=== PATIENT | female | born 1970 | race Caucasian/White ===

== ENCOUNTER → 2018-02-13 15:58 | Outpatient (REF) | payer OTHER, SELFPAY ==
[2018-02-13 19:29] LABS: Amphetamine/Metha Screen,Urine Negative ng/mL (<1000); Barbiturates Screen,Urine Negative ng/mL (<200); Benzodiazepines Screen,Urine Negative ng/mL (200); Cannabinoid Screen,Urine Negative ng/mL (<50); Cocaine Screen,Urine Negative ng/g (<300); Methadone Screen,Urine Negative ng/mL (<300); Opiate Screen,Urine Positive ng/mL (<300); Phencyclidine Screen,Urine Negative ng/mL (<25)
== END ==
LOC: LAB 15:58
PROVIDERS: Visit Provider Physician Assistant
DX: Z79.899 Other long term (current) drug therapy (principal)
CPT/HCPCS: 80305

== ENCOUNTER → 2018-05-03 09:42 | Outpatient (REF) | payer OTHER, SELFPAY ==
[2018-05-03 14:14] LABS: Amphetamine/Metha Screen,Urine Negative ng/mL (<1000); Barbiturates Screen,Urine Negative ng/mL (<200); Benzodiazepines Screen,Urine Negative ng/mL (<200); Cannabinoid Screen,Urine Negative ng/mL (<50); Cocaine Screen,Urine Negative ng/mL (<300); Methadone Screen,Urine Negative ng/mL (<300); Opiate Screen,Urine Positive ng/mL (<300); Phencyclidine Screen,Urine Negative ng/mL (<25)
== END ==
LOC: LAB 09:42
PROVIDERS: Visit Provider Nurse Practitioner Family
DX: Z79.899 Other long term (current) drug therapy (principal)
CPT/HCPCS: 80305

== ENCOUNTER → 2018-06-04 15:39 | Outpatient (REF) | payer OTHER, SELFPAY ==
[2018-06-04 19:33] LABS: Amphetamine/Metha Screen,Urine Negative ng/mL (<1000); Barbiturates Screen,Urine Negative ng/mL (<200); Benzodiazepines Screen,Urine Negative ng/mL (<200); Cannabinoid Screen,Urine Negative ng/mL (<50); Cocaine Screen,Urine Negative ng/mL (<300); Methadone Screen,Urine Negative ng/mL (<300); Opiate Screen,Urine Positive ng/mL (<300); Phencyclidine Screen,Urine Negative ng/mL (<25)
== END ==
LOC: LAB 15:39
PROVIDERS: Visit Provider Nurse Practitioner Family
DX: Z79.899 Other long term (current) drug therapy (principal)
CPT/HCPCS: 80305

== ENCOUNTER → 2018-08-01 19:19 | Outpatient (REF) | payer OTHER, SELFPAY ==
[2018-08-01 21:05] LABS: Amphetamine/Metha Screen,Urine Negative ng/mL (<1000); Barbiturates Screen,Urine Negative ng/mL (<200); Benzodiazepines Screen,Urine Negative ng/mL (<200); Cannabinoid Screen,Urine Negative ng/mL (<50); Cocaine Screen,Urine Negative ng/mL (<300); Methadone Screen,Urine Negative ng/mL (<300); Opiate Screen,Urine Positive ng/mL (<300); Phencyclidine Screen,Urine Negative ng/mL (<25)
== END ==
LOC: LAB 19:19
PROVIDERS: PCP Nurse Practitioner Family; Visit Provider Nurse Practitioner Family
DX: Z79.899 Other long term (current) drug therapy (principal)
CPT/HCPCS: 80305

== ENCOUNTER → 2019-08-29 13:28 | Outpatient (CLI) | payer BC, SELFPAY ==
[2019-08-29 14:24] LABS: Amphetamine/Metha Screen,Urine Negative ng/mL (<1000); Barbiturates Screen,Urine Negative ng/mL (<200); Benzodiazepines Screen,Urine Negative ng/mL (<200); Cannabinoid Screen,Urine Negative ng/mL (<50); Cocaine Screen,Urine Negative ng/mL (<300); Methadone Screen,Urine Negative ng/mL (<300); Opiate Screen,Urine Positive ng/mL (<300); Phencyclidine Screen,Urine Negative ng/mL (<25)
== END ==
PROVIDERS: Visit Provider Nurse Practitioner Family
DX: Z79.899 Other long term (current) drug therapy (principal)
CPT/HCPCS: 80305

== ENCOUNTER → 2019-09-23 09:44 | Outpatient (CLI) | payer BC, SELFPAY ==
--- NOTE | 2019-09-23 09:50 | XR_ITS ---
PROCEDURE: XR THORACIC SPINE 3V CLINICAL INDICATION: pain Back pain, lifting injury with pain COMPARISON: WO CT CHEST W/O CONTRAST from 01/04/2015 FINDINGS: Normal alignment. Mild degenerative changes with slight decrease in the disc spaces in the midthoracic spine with minimal osteophyte formation. Is slight decrease in height anteriorly of T6 age indeterminate. No other significant anomalies are evident. IMPRESSION: Mild degenerative changes with slight decrease in height of T6 anteriorly age indeterminate otherwise negative Dictated by: Robert Ibrahim MD 09/23/2019 14:21 Electronically signed by Robert Ibrahim MD in [place] 09/23/2019 14:21
--- NOTE | 2019-09-23 09:50 | XR_ITS ---
PROCEDURE: XR LUMBAR SPINE 2-3V CLINICAL INDICATION: pain Back pain COMPARISON: No exams were available for comparison FINDINGS: Facet arthritic changes are present at L5-S1. No fracture or dislocation. No lytic or blastic change. IMPRESSION: Mild facet arthritic changes L5-S1 Dictated by: Robert Ibrahim MD 09/23/2019 14:24 Electronically signed by Robert Ibrahim MD in [place] 09/23/2019 14:24
== END ==
PROVIDERS: PCP Physician Assistant; Visit Provider Nurse Practitioner Family
DX: M51.16 Intervertebral disc disorders with radiculopathy, lumbar region (principal)
CPT/HCPCS: 72072; 72100

== ENCOUNTER → 2020-05-17 18:05 | Outpatient (CLI) | payer BC, SELFPAY ==
[2020-05-17 19:35] LABS: Basophils % 0.2 % (0.1-2.0); Eosinophils # 0.1 K/mm3 (0.0-0.4); Hematocrit 34.9 % (37.0-47.0); Hemoglobin 11.4 g/dL (12.2-16.2); Lymphocytes # 2.4 K/mm3 (0.7-4.5); Lymphocytes % 52.5 % (10-50); Mean Corpuscular HGB Conc 32.5 g/dL (31.8-35.4); Mean Corpuscular Volume 83.1 fl (81-99); Mean Platelet Volume 10.2 fl (7.4-10.4); Monocytes # 0.2 K/mm3 (0.1-1.0); Monocytes % 3.7 % (1.7-9.3); Neutrophils % 42.6 % (37.0-80.0); Platelet Count 187 K/mm3 (142-424); Red Cell Distribution Width 15.7 % (11.5-17.5); White Blood Count 4.6 K/mm3 (4.8-10.8)
[2020-05-17 20:10] LABS: MANUAL DIFFERENTIAL MANUAL DIFFERENTIAL (MANUAL DIFF)
[2020-05-17 20:23] LABS: Alanine Aminotransferase 20 U/L (12-78); Albumin Level 4.5 g/dl (3.5-5.0); Albumin/Globulin Ratio 1.3 (1.1-1.8); Alkaline Phosphatase 177 U/L (38-126); Anion Gap 17.2 mEq/L (5-15); Aspartate Amino Transferase 34 U/L (14-36); Bilirubin,Total 0.4 mg/dl (0.2-1.3); Blood Urea Nitrogen 9 mg/dl (7-17); Calcium 10.5 mg/dl (8.4-10.2); Carbon Dioxide 25 mmol/L (22.0-30.0); Chloride 101 mmol/L (98-107); Cholesterol 288 mg/dl (140-200); Estimated Glomerular Filt Rate 131 ml/min (>60); GFR (African American) 158 ML/MIN (>60); Globulin 3.5 g/dL (1.3-3.2); Glucose 103 mg/dl (74-100); Potassium 4.2 mmoL/L (3.5-5.1); Sodium 139 mmol/L (136-145); Triglycerides 123 mg/dl (30-150); VLDL Cholesterol 25 mg/dL (0-40)
[2020-05-17 20:33] LABS: Chol/HDL Ratio 2.3 (1-3.5); HDL Cholesterol 126 mg/dl (40-60)
[2020-05-17 20:34] LABS: Direct LDL Cholesterol 126.45 mg/dL (100-129)
[2020-05-17 20:39] LABS: 25-OH Vitamin D, Total 26.8 ng/mL (30-100)
[2020-05-17 20:40] LABS: T4 (Thyroxine) 8.1 ug/dl (5.53-11.0)
[2020-05-17 20:53] LABS: Thyroid Stimulating Hormone 1.53 uIU/mL (0.465-4.68)
[2020-05-17 21:01] LABS: Eosinophils % 3 % (0-3); Lymphocytes % 56 % (10-50); Neutrophils % 41 % (42-76); Ovalocytes 1+; Platelet Estimate Normal; Total Cells Counted 100
[2020-05-17 21:02] LABS: Hypochromasia 1+
== END ==
LOC: LAB.DROPOF 18:05
PROVIDERS: Visit Provider Physician Assistant
DX: E53.8 Deficiency of other specified B group vitamins (principal); K86.1 Other chronic pancreatitis; M54.5 Low back pain; R53.83 Other fatigue; E55.9 Vitamin D deficiency, unspecified
CPT/HCPCS: 80053; 80061; 82306; 84436; 84443; 85007; 85025

== ENCOUNTER 2020-07-10 12:10 | Emergency (ER) | payer OTHER, SELFPAY ==
[2020-07-10 12:11] VITALS: BP 106/77; PULSE 87; RESP 19; TEMP 36.7; O2SAT 97; BMI 25.4
--- NOTE | 2020-07-10 12:13 | HMH.EDGENADL ---
ED Disposition Clinical Impression: Abrasion, left knee, initial encounter Contusion of left knee Qualifiers: Encounter type: initial encounter Qualified Code(s): S80.02XA - Contusion of left knee, initial encounter Fall Qualifiers: Encounter type: initial encounter Qualified Code(s): W19.XXXA - Unspecified fall, initial encounter Strain of left hip Qualifiers: Encounter type: initial encounter Qualified Code(s): S76.012A - Strain of muscle, fascia and tendon of left hip, initial encounter Disposition: Home, Self-Care Condition on Discharge: Good Instructions: How to Prevent Falls, DI for Knee Pain, How to Use a Knee Immobilizer, How to Use Crutches, DI for Hip Pain Additional Instructions: Crutches and knee immobilizer. Follow-up with orthopedics 4 to 5 days. Ice and your usual pain medication for pain. - Critical Care Critical Care Time: No Attestation: On , the high probability of a clinically significant, sudden or life threatening deterioration of the following system(s) required my full and direct attention, intervention and personal management. The time I documented below is in addition to time spent performing reported procedures but includes the following listed in this critical care notation. Medical Decision Making - Medical Records Medical records reviewed: Yes: I reviewed the patient's medical records. - Bassem Inquiry Pt receiving controlled substance: Yes Bassem was queried for this patient: Yes Reference #:: [id number] Risks and benefits of using a controlled substance: were not discussed with pt by me Comment: 10 rxs. last rx 90 lortab 7.5mg on 06/17/20 Vital Signs: 07/10/20 12:11 07/10/20 12:33 Temperature 98.0 F Temperature Source Oral Pulse Rate [Left Radial] 87 89 Respiratory Rate 19 Blood Pressure [Right Arm] 106/77 L 90/66 L Blood Pressure Mean [Right Arm] 86 74 Blood Pressure Source [Right Arm] Automatic Cuff Automatic Cuff Blood Pressure Position [Right Arm] Sitting Sitting 02 Sat by Pulse Oximetry 97 93 L Oxygen Delivery Method Room Air Room Air - Lab Data Lab results reviewed: Yes: I reviewed the patient's lab results. Orders (Tests/Meds): ED MEDICATIONS Discontinued Medications Generic Name Dose Route Start Last Admin Trade Name Freq PRN Reason Stop Dose Admin Hydrocodone Bitart/Acetaminophen 1 tab 07/10/20 12:58 Apap/Hydrocodone 325mg/7.5mg Tab PO 07/10/20 12:59 ONCE ONE ORDERS Category Date Time Status XR hip LT 2-3V w/pelvis Stat Exams 07/10/20 12:19 Taken XR knee LT 3V Stat Exams 07/10/20 12:19 Taken General Adult HPI - General Stated complaint: Fall Time Seen by Provider: 07/10/20 12:46 - History of Present Illness HPI narrative: Brought in by ambulance for a fall with left lower extremity injury. Patient states that she fell on [place] and landed on her left knee. She has an abrasion in the infrapatellar area. Her primary complaint is knee pain but she says she also thinks she jammed her hip. She says she did not try and walk after the accident. Denies other injuries. She is on chronic pain medication but says she has not taken any since last night. - Related Data Home Medications Medication Instructions Recorded Confirmed Atorvastatin Calcium [Lipitor 10mg 10 mg PO DAILY 07/10/20 07/10/20 Tab] Cholecalciferol (Vitamin D3) 25 mcg PO DAILY 07/10/20 07/10/20 [Vitamin D3 1,000 Unit Cap] Cyanocobalamin (Vitamin B-12) 1,000 mcg IM QMONTH 07/10/20 07/10/20 [Physicians Ez Use B-12] Ergocalciferol (Vitamin D2) 1,250 mcg PO QWEEK 07/10/20 07/10/20 [Drisdol] Omeprazole 20 mg PO DAILY 07/10/20 07/10/20 Previous Rx's Medication Instructions Recorded promethazine 25 mg tablet 25 mg PO Q6H PRN #30 tab 05/17/20 hydrocodone 7.5 mg-acetaminophen 1 tab PO TID PRN #90 tab 07/07/20 325 mg tablet Allergies Allergy/AdvReac Type Severity Reaction Status Date / Time No Known Steve
--- NOTE | 2020-07-10 12:19 | XR_ITS ---
PROCEDURE: XR KNEE LT 3V CLINICAL INDICATION: fall COMPARISON: No exams were available for comparison FINDINGS: No fracture or dislocation. No lytic or blastic change. There is normal mineralization. The joint spaces are well-preserved. No significant degenerative/arthritic changes. No erosive changes evident. Other findings:None. IMPRESSION: No acute findings. Dictated by: Dr. Nikolas Cabrera MD 07/10/2020 15:54 Dr. Nikolas Cabrera MD in [place] 07/10/2020 15:54
--- NOTE | 2020-07-10 12:19 | XR_ITS ---
PROCEDURE: XR HIP LT 2-3V W/PELVIS CLINICAL INDICATION: fall , Left hip pain COMPARISON: No exams were available for comparison FINDINGS: No fracture or dislocation is evident. No significant degenerative change. No lytic or blastic change. Unremarkable soft tissues. There is osteophytic spurring or possibly a small osteo chondroma adjacent to the lesser trochanter right hip. The SI joints and symphysis pubis appear normal. IMPRESSION: No acute findings. Dictated by: Dr. Nikolas Cabrera MD 07/10/2020 15:54 Dr. Nikolas Cabrera MD in [place] 07/10/2020 15:54
[2020-07-10 12:33] VITALS: BP 90/66; PULSE 89; O2SAT 93
--- NOTE | 2020-07-10 12:37 | PC.NURSE ---
Pt to rad.
--- NOTE | 2020-07-10 12:48 | PC.NURSE ---
Pt returned from rad and went to restroom. Pt is back in bed at this time.
[2020-07-10 14:06] VITALS: BP 154/85; PULSE 87; RESP 17; TEMP 36.8; O2SAT 100
== END 2020-07-10 14:06 | disposition home or self-care (01) ==
PROVIDERS: Emergency Provider Emergency Medicine; PCP Emergency Medicine
DX: S80.02XA Contusion of left knee, initial encounter (principal); S76.012A Strain of muscle, fascia and tendon of left hip, initial encounter; W01.0XXA Fall on same level from slipping, tripping and stumbling without subsequent striking against object, initial encounter; Y92.019 Unspecified place in single-family (private) house as the place of occurrence of the external cause
CPT/HCPCS: 29505; 73502; 73562; 99283

== ENCOUNTER → 2020-08-23 16:47 | Outpatient (CLI) | payer OTHER, SELFPAY ==
--- NOTE | 2020-08-23 16:47 | MM_ITS ---
PROCEDURE: MM DIG SCREENING MAMM BI W/CAD Digital Breast Tomosynthesis Included CLINICAL INDICATION: screening There is a history of breast cancer in the patient's maternal cousin and paternal aunt. COMPARISON: MG DIGMAMMS MAMMOGRAM SCREEN-LEAD FABRICATOR N/C from 05/10/2012 MG DIGMAMMS MAMMOGRAM SCREEN-LEAD FABRICATOR N/C from 06/19/2013 MG DMSB DIG MAMM-SCREEN JV from 05/22/2016 TECHNIQUE: Standard CC and MLO images and 3D Tomosynthesis was obtained. R2 CAD reviewed. FINDINGS: Scattered fibroglandular densities are seen throughout both breast and the findings are bilateral and symmetrical. There is no suspicious lesion and no suspicious microcalcifications. IMPRESSION: Fibrofatty parenchyma with no suspicious lesions seen BI-RAD Category: 1 Negative FOLLOW-UP: 1YR 1 Year Follow-up (A letter has been sent to the patient regarding results of the study.) Dictated by: Dr. Nikolas Cabrera MD 08/27/2020 11:05 Dr. Nikolas Cabrera MD in [place] 08/27/2020 11:05
== END ==
PROVIDERS: PCP Physician Assistant; Visit Provider Physician Assistant
DX: Z12.31 Encounter for screening mammogram for malignant neoplasm of breast (principal)
CPT/HCPCS: 77063; 77067

== ENCOUNTER → 2020-09-17 15:42 | Outpatient (CLI) | payer OTHER, SELFPAY ==
--- NOTE | 2020-09-17 15:49 | MR_ITS ---
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 3-D MIP and myelographic images are also rendered and reviewed FINDINGS: The spinal cord ends at the L1 level L1-L2: Unremarkable. L2-L3: Unremarkable. L3-L4: Minimal bulging disc with mild facet and ligamentum hypertrophy with mild bilateral lateral recess narrowing not significantly changed. L4-5: Mild concentric bulging disc with facet and ligamentum hypertrophy. The bulging disc is very slightly eccentric toward the left. There is bilateral lateral recess narrowing and foraminal narrowing with borderline canal stenosis. Not significantly changed. L5-S1: Mild concentric bulging disc with annular fissure on the right. The bulging disc is very slightly eccentric toward the right. There is facet and ligamentum hypertrophic change with mild left lateral recess and mild bilateral foraminal narrowing. IMPRESSION: 1. L3-L4: Minimal bulging disc with mild facet and ligamentum hypertrophy with mild bilateral lateral recess narrowing not significantly changed. 2. L4-5: Mild concentric bulging disc with facet and ligamentum hypertrophy. The bulging disc is very slightly eccentric toward the left. There is bilateral lateral recess narrowing and foraminal narrowing with borderline canal stenosis. Not significantly changed. 3. L5-S1: Mild concentric bulging disc with annular fissure on the right. The bulging disc is very slightly eccentric toward the right. There is facet and ligamentum hypertrophic change with mild left lateral recess and mild bilateral foraminal narrowing. Dictated by: Robert Ibrahim MD 09/20/2020 07:06 Robert Ibrahim MD in [place] 09/20/2020 07:06
== END ==
LOC: RAD 15:44
PROVIDERS: PCP Physician Assistant; Visit Provider Physician Assistant
DX: M54.5 Low back pain (principal); R20.0 Anesthesia of skin; R20.2 Paresthesia of skin; R29.6 Repeated falls
CPT/HCPCS: 72148; 76376

== ENCOUNTER → 2021-02-09 13:46 | Outpatient (CLI) | payer OTHER, SELFPAY ==
[2021-02-09 15:19] LABS: Barbiturates Screen,Urine Negative ng/ml (<200); Benzodiazepines Screen,Urine Positive ng/ml (<200)
[2021-02-09 15:20] LABS: Amphetamine/Metha Screen,Urine Negative ng/ml (<1000)
[2021-02-09 15:21] LABS: Cannabinoid Screen,Urine Negative ng/ml (<50); Cocaine Screen,Urine Negative ng/ml (<300)
[2021-02-09 15:22] LABS: Methadone Screen,Urine Negative ng/ml (<300); Opiate Screen,Urine Positive ng/ml (<300)
[2021-02-09 15:23] LABS: Phencyclidine Screen,Urine Negative ng/ml (<25)
== END ==
PROVIDERS: Visit Provider Physician Assistant
DX: Z79.899 Other long term (current) drug therapy (principal)
CPT/HCPCS: 80305

== ENCOUNTER → 2021-02-25 11:03 | Outpatient (CLI) | payer OTHER, SELFPAY | PROVIDERS: Visit Provider Internal Medicine Gastroenterology | DX: Z01.812 Encounter for preprocedural laboratory examination (principal); Z11.52 Encounter for screening for COVID-19; Z13.810 Encounter for screening for upper gastrointestinal disorder | CPT/HCPCS: U0003 ==

== ENCOUNTER 2021-02-28 08:34 | Day surgery (SDC) | payer OTHER, SELFPAY ==
[2021-02-22 10:02] VITALS: BMI 26.5
[2021-02-28] VITALS (7 sets, daily range): BP systolic 87–120; BP diastolic 56–79; PULSE 69–101; RESP 16–18; TEMP 36.2–36.7; O2SAT 97–100
--- NOTE | 2021-02-28 09:58 | HMH.ANESCL ---
[facility] Anesthesia Checklist - Patient Identification Patient Identification: Arm Band - Structural Data Admitted From: Home Planned Operative Procedure/s: EGD Consent for Planned Operative Procedure(s) Verified: Yes - NPO Status Verified Time NPO: 00:00 - Airway Assessment C-Spine Mobility Assessed: Yes TMJ Mobility Assessed: Yes Dentition: Good Dentition - Neurological Assessment Level of Consciousness: Awake Hx Seizures: No Numbness or tingling in extremities: No - Anesthesia Plan Anesthesia Risk discussed: Yes Anesthesia Plan: Verified ASA Class: II Anesthesia Type: MAC [facility] History Medical History: Reports:: Anxiety, Cancer (esophageal) Denies:: Diabetes Mellitus Type 1, Diabetes Mellitus Type 2, Internal Pacemaker, MRSA, Seizures *Have you ever received a pneumonia vaccine?: No *Have you received a flu vaccine this season?: No Other Medical History: Reports: Other Anesthesia experience/problems:: None Other Surgeries: Yes: Bariatric Surgery, Cholecystectomy, Colonoscopy, Hysterectomy-Total, Tubal Ligation. No: Pacemaker Amputation: No Fractures: No - *Social History Last grade of school completed: High school graduate Smoking Status: Never smoker Tobacco Type: cigarettes Alcohol Intake: never Substance Use Type: denies use *Occupational Status:: retired Housing: house Household Members: spouse *Travel in the last 8 weeks: None - Psychiatric History Pschychiatric History:: Reports:: Anxiety Family Hx:: Cancer, Diabetes, Other
--- NOTE | 2021-02-28 10:38 | HMH.PROC ---
[facility] Procedure Note Procedure Note:: Upper Endoscopy Procedure Report: Esophagogastroduodenoscopy with cold biopsies and TTS balloon dilation Endoscopost: Julio Reese II, MD Referring Physician: Vamsi Garces MD/Maribeth Dejesus PA-C Date of Procedure: February 28, 2021 Equipment: Olympus GIF 190 standard upper endoscope Sedation: MAC sedation Indications: Mrs. Gonzales is a 50-year-old female with a history of Ward's esophagus with high-grade dysplasia. She did undergo radiofrequency ablation in 2013. She was last seen by Dr. James Gibson at the [facility]. 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 The patient has had increased heartburn and regurgitation. She has had some epigastric abdominal discomfort, dyspepsia, nausea, bloating and early satiety. She does have some belching. She reports globus sensation. She has a history of chronic constipation. EGD is performed for Ward's surveillance and evaluation of her dyspepsia. Procedure: Prior to the procedure, a history and physical exam was performed, and patient's medications and allergies were reviewed. The risks, benefits and alternatives of the sedation and procedure were discussed with the patient. All questions were answered and informed consent was obtained. The patient was brought to the procedure room. Patient identification and proposed procedure were verified by the physician and the nurse. The patient was placed in a left lateral decubitus position and the scope was passed under direct vision. Throughout the procedure, the patient's blood pressure, pulse, and oxygen saturations were monitored continuously. The upper GI endoscopy was accomplished without difficulty. The patient tolerated the procedure well. Findings: The scope was passed directly into the upper esophagus and advanced to the afferent and efferent limbs of jejunum. The scope was withdrawn and the conniventes were normal. There was some stenosis of the anastomotic stoma into the efferent limb and this was dilated up to 12 mm with a TTS hydrostatic balloon. The gastric pouch was normal in size. There was reduced LES resting tone and there was mild gastropathy of the pouch. The scope was withdrawn into the esophagus. There were a couple of tongues of salmon-colored mucosa that were very short and the narrowband imaging (NBI) was utilized but there was no obvious Wrad's. Biopsies were taken at the GE junction. There was grade A reflux esophagitis (LA classification). The remainder of the esophageal mucosa was normal. Impression: 1. Serrated squamocolumnar junction (no obvious Ward's) with grade A reflux esophagitis status post biopsies 2. 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 I would recommend continued PPI therapy. I do feel that most of her dyspepsia and reflux is driven by high gas pressure gradients from colonic obstipation with colonic fermentation/gas formation. We will discuss additional dietary measures, fiber bowel regimen and treatment.
== END 2021-02-28 11:42 | disposition home or self-care (01) ==
LOC: OUTP 08:38
PROVIDERS: PCP Physician Assistant; Visit Provider Internal Medicine Gastroenterology
PROC: 0DJ08ZZ Inspection of Upper Intestinal Tract, Via Natural or Artificial Opening Endoscopic (ICD-10-PCS; CPT 43235; principal; 2021-02-28 10:00)
DX: K22.8 Other specified diseases of esophagus (principal); K21.00 Gastro-esophageal reflux disease with esophagitis, without bleeding; K31.89 Other diseases of stomach and duodenum; Z85.01 Personal history of malignant neoplasm of esophagus; Z87.19 Personal history of other diseases of the digestive system; Z98.84 Bariatric surgery status; F41.9 Anxiety disorder, unspecified; Z90.49 Acquired absence of other specified parts of digestive tract; Z80.9 Family history of malignant neoplasm, unspecified; Z83.3 Family history of diabetes mellitus; Z79.899 Other long term (current) drug therapy
CPT/HCPCS: 43239; 43245; C1726

== ENCOUNTER 2021-03-27 11:47 | Emergency (ER) | payer OTHER, SELFPAY ==
[2021-03-27 11:54] VITALS: BP 125/75; PULSE 97; RESP 14; TEMP 36.8; O2SAT 98; BMI 27.4
--- NOTE | 2021-03-27 12:19 | HMH.EDUTC ---
[facility] Disposition Clinical Impression: Otitis media Qualifiers: Otitis media type: suppurative Chronicity: acute Laterality: right Recurrence: non-recurrent Spontaneous tympanic membrane rupture: with spontaneous rupture Qualified Code(s): H66.011 - Acute suppurative otitis media with spontaneous rupture of ear drum, right ear Disposition: Home, Self-Care Condition on Discharge: Good Instructions: Middle Ear Infection Additional Instructions: Start antibiotic as soon as possible and be sure to take as ordered for full length of time even though he should start feeling better in 24-48 hours. Tylenol or Motrin as needed for pain or fever don't let any fluids get in ear wear ear plugs if necessary Encourage fluids, water, Gatorade, Powerade, Pedialyte if /toddler/child Warm compresses often helps when placed over ear Return immediately for new or worsening symptoms no noticeable improvement in 48-72 hours and in 10-14 days to ensure the ears are return to baseline. Follow-up with primary care Prescriptions: Amoxicillin [Amoxicillin 500mg Tab] 500 mg PO BID 10 Days #20 tab Prescription Printed Referrals: Maribeth Dejesus PA [Primary Care Provider] - Time of Disposition: 12:24 Medical Decision Making - Bassem Inquiry Pt receiving controlled substance: No Vital Signs: 03/27/21 11:54 Temperature 98.3 F Temperature Source Oral Pulse Rate [Left] 97 H Respiratory Rate 14 Blood Pressure [Right Arm] 125/75 Blood Pressure Mean [Right Arm] 91 Blood Pressure Source [Right Arm] Automatic Cuff Blood Pressure Position [Right Arm] Sitting 02 Sat by Pulse Oximetry 98 Oxygen Delivery Method Room Air [facility] HPI - General Chief complaint: Urgent Treatment Center Stated complaint: right ear pain and bleeding Time Seen by Provider: 03/27/21 12:19 Mode of Arrival: Ambulatory Source of Information: Patient Limitations: No Limitations Description of Symptoms (Recalled from Triage Doc. by RN): Pt c/o R ear pain with serosanguinous drainage. HEENT Symptoms (Recalled from RN notes): Yes (R ear ache with drainage) Resp Symptoms (Recalled from RN notes): No Skin Symptoms (Recalled from RN notes): No MS Symptoms (Recalled from RN notes): No Functional Status (Recalled from RN notes): na - History of Present Illness Provider Complaint: 50 yr old female presents for rt ear pain with bloody drainage. pt states pain started yesterday and this am she noticed blood - Related Data Home Medications Medication Instructions Recorded Confirmed Cholecalciferol (Vitamin D3) 25 mcg PO DAILY 07/10/20 02/28/21 [Vitamin D3 1,000 Unit Cap] Cyanocobalamin (Vitamin B-12) 1,000 mcg IM QMONTH 07/10/20 02/28/21 [Physicians Ez Use B-12] Hydrocodone/Acetaminophen 1 each PO NEEDED PRN 02/22/21 02/28/21 [Hydrocodon-Acetaminoph 7.5-325] Previous Rx's Medication Instructions Recorded atorvastatin 10 mg tablet 10 mg PO DAILY #90 tab 11/03/20 omeprazole 20 mg capsule,delayed 20 mg PO DAILY #90 cap 11/03/20 release Amoxicillin [Amoxicillin 500mg Tab] 500 mg PO BID 10 Days #20 tab 03/27/21 Allergies Allergy/AdvReac Type Severity Reaction Status Date / Time No Known Allergies Allergy Verified 03/27/21 12:13 - Worker's Comp Is this a Worker's Comp case?: No [facility] History - Hepatitis A Screen Drug use history?: No High risk sexual behaviors?: No History of sexually transmitted infection?: No Currently employed?: No Childcare worker?: No Do you have indoor plumbing?: Yes Do you have electricity?: Yes Attestation statement:: This patient has been screened for Hepatitis A risk factors. I have reviewed the patient's past medical history: Yes Medical History: Reports:: Anxiety, Cancer (esophageal) Denies:: Diabetes Mellitus Type 1, Diabetes Mellitus Type 2, Internal Pacemaker, MRSA, Seizures Other Medical History: Reports: Other Comment: CHRONIC PANCREATITIS, BACK PAIN Other Surgeries: Yes: Bariatric Surgery,
[2021-03-27 12:21] VITALS: BP 125/75; PULSE 97; RESP 16; TEMP 36.8
== END 2021-03-27 12:30 | disposition home or self-care (01) ==
PROVIDERS: Emergency Provider Nurse Practitioner Family; PCP Physician Assistant
DX: H66.011 Acute suppurative otitis media with spontaneous rupture of ear drum, right ear (principal); F41.9 Anxiety disorder, unspecified
CPT/HCPCS: 99202; G0463

== ENCOUNTER → 2021-04-22 12:20 | Outpatient (CLI) | payer OTHER, SELFPAY | PROVIDERS: Visit Provider Internal Medicine Gastroenterology | DX: Z20.822 Contact with and (suspected) exposure to COVID-19 (principal) | CPT/HCPCS: U0003 ==

== ENCOUNTER 2021-04-25 09:05 | Day surgery (SDC) | payer OTHER, SELFPAY ==
[2021-04-21 11:38] VITALS: BMI 26.1
[2021-04-25 09:21] VITALS: BP 127/79; PULSE 89; RESP 18; TEMP 36.8; O2SAT 99
--- NOTE | 2021-04-25 09:32 | P.PN_ITS ---
[facility] Anesthesia Checklist - Patient Identification Patient Identification: Arm Band - Structural Data Admitted From: Home Planned Operative Procedure/s: Colonoscopy Consent for Planned Operative Procedure(s) Verified: Yes - NPO Status Verified Time NPO: 00:00 - Airway Assessment C-Spine Mobility Assessed: Yes TMJ Mobility Assessed: Yes Dentition: Good Dentition - Neurological Assessment Level of Consciousness: Awake Hx Seizures: No Numbness or tingling in extremities: No - Anesthesia Plan Anesthesia Risk discussed: Yes Anesthesia Plan: Verified ASA Class: II Anesthesia Type: MAC [facility] History Medical History: Reports:: Anxiety, Cancer (ESOPHAGEAL) Denies:: Diabetes Mellitus Type 1, Diabetes Mellitus Type 2, Internal Pacemaker, MRSA, Seizures *Have you ever received a pneumonia vaccine?: No *Have you received a flu vaccine this season?: No Other Medical History: Reports: Other Anesthesia experience/problems:: None Other Surgeries: Yes: Bariatric Surgery, Cholecystectomy, Colonoscopy, Hysterectomy-Total, Tubal Ligation. No: Pacemaker Amputation: No Fractures: No - *Social History Last grade of school completed: High school graduate Smoking Status: Never smoker Tobacco Type: cigarettes Alcohol Intake: never Substance Use Type: denies use *Occupational Status:: other Housing: house Household Members: spouse *Travel in the last 8 weeks: None - Psychiatric History Pschychiatric History:: Reports:: Anxiety Family Hx:: Cancer, Diabetes, Hypertension
--- NOTE | 2021-04-25 10:15 | HMH.PROC ---
[facility] Procedure Note Procedure Note:: Colonoscopy Procedure Report: Colonoscopy Endoscopist: Julio Reese II, MD Referring physician: Maribeth Dejesus PA-C Date of Procedure: April 25, 2021 Equipment: Olympus 190 variable stiffness pediatric colonoscope Sedation: MAC sedation Indication: Mrs. Gonzales is a 51-year-old female who is here for screening colonoscopy. The patient does have a history of Ward's with ablation. She had an EGD with sd on February 28, 2021 and had mild reflux esophagitis and Valeria-en-Y gastric bypass anatomy with some anastomotic stenosis. I did dilate this anastomotic stricture/stenosis to 12 mm. She has been on the fiber bowel regimen (combined MiraLAX plus Metamucil mixed together by mouth every morning). She is doing better and has no significant abdominal complaints. She reports no abdominal pain, weight loss, change in her bowel habits or rectal bleeding. She reports no family history of colon cancer. Her last colonoscopy was 10 years ago and was normal. Procedure: Prior to the procedure, a history and physical exam was performed, and patient's medications and allergies were reviewed. The risks, benefits and alternatives of the sedation and procedure were discussed with the patient. All questions were answered and informed consent was obtained. The patient was brought to the procedure room. Patient identification and proposed procedure were verified by the physician and the nurse. The patient was placed in a left lateral decubitus position and the scope was passed under direct vision. Throughout the procedure, the patient's blood pressure, pulse, and oxygen saturations were monitored continuously. The colonoscopy was accomplished without difficulty. The patient tolerated the procedure well. Findings: On digital rectal examination there was normal rectal tone. There were no external hemorrhoids. The colonoscope was introduced through the anal canal to the rectum and advanced to the cecum. The ileocecal valve and appendiceal orifice were identified. The scope was advanced a short distance into the ileum which appeared grossly normal. The scope was then withdrawn into the colon. The cecum, ascending, transverse, descending, sigmoid and rectum were grossly normal. There were no mucosal abnormalities identified. Upon retroflexion within the rectum there were grade 1-2 internal hemorrhoids.The preparation was excellent throughout with [place] Preparation Score of nine. The cecal time was 12 minutes. Impression: 1. Normal colonoscopy with intubation of the terminal ileum 2. Grade 1-2 internal hemorrhoids Plan: The patient will not require screening/surveillance colonoscopy again for 10 years by [facility] guidelines. I would encourage continuation of the fiber bowel regimen (combined MiraLAX plus Metamucil) on a long-term daily maintenance basis.
[2021-04-25 10:17] VITALS: BP 101/60; PULSE 96; RESP 12; TEMP 36.4; O2SAT 98
[2021-04-25 10:27] VITALS: BP 126/81; PULSE 88; RESP 16; O2SAT 98
[2021-04-25 10:37] VITALS: BP 108/68; PULSE 83; RESP 16; O2SAT 98
[2021-04-25 10:47] VITALS: BP 112/67; PULSE 82; RESP 16; TEMP 36.4; O2SAT 100
[2021-04-25 13:30] VITALS: O2SAT 99
== END 2021-04-25 10:48 | disposition home or self-care (01) ==
LOC: OUTP 09:07
PROVIDERS: PCP Physician Assistant; Visit Provider Internal Medicine Gastroenterology
PROC: 0DJD8ZZ Inspection of Lower Intestinal Tract, Via Natural or Artificial Opening Endoscopic (ICD-10-PCS; CPT 45378; principal; 2021-04-25 10:00)
DX: Z12.11 Encounter for screening for malignant neoplasm of colon (principal); Z87.19 Personal history of other diseases of the digestive system; Z98.84 Bariatric surgery status; K64.0 First degree hemorrhoids; Z85.01 Personal history of malignant neoplasm of esophagus; F41.9 Anxiety disorder, unspecified; Z80.9 Family history of malignant neoplasm, unspecified; Z83.3 Family history of diabetes mellitus; Z82.49 Family history of ischemic heart disease and other diseases of the circulatory system; Z79.899 Other long term (current) drug therapy
CPT/HCPCS: 45378; J2704

== ENCOUNTER → 2021-10-19 08:47 | Outpatient (CLI) | payer OTHER, SELFPAY | PROVIDERS: Visit Provider Nurse Practitioner | DX: Z20.822 Contact with and (suspected) exposure to COVID-19 (principal) | CPT/HCPCS: C9803; U0003; U0005 ==

== ENCOUNTER 2021-12-15 10:04 | Emergency (ER) | payer OTHER, SELFPAY ==
[2021-12-15 11:15] VITALS: BP 112/79; PULSE 82; RESP 20; TEMP 37.4; O2SAT 99; BMI 27.1
[2021-12-15 11:22] LABS: UTC Strep Screen (Rapid) Negative (Negative)
--- NOTE | 2021-12-15 11:43 | HMH.EDUTC ---
[facility] [place] Clinical Impression: Sinusitis Qualifiers: Sinusitis location: unspecified location Chronicity: unspecified Qualified Code(s): J32.9 - Chronic sinusitis, unspecified Disposition: Home, Self-Care Condition on Discharge: Good Instructions: Sinusitis, DI for Sinusitis Additional Instructions: ? Start antibiotic today. Be sure to complete entire prescription even if feeling better ? Monitor temp. Tylenol every 4 hours as needed and / or ibuprofen every 6 hours as needed ( As long as your primary care physician has told you that it ok to take both. For fever/aches/pains ER if no less than 101 despite Tylenol or Motrin ? Humidifier/vaporizer or hot steamy shower ? Inhaler every 4-6 hours as needed like we discussed. If unsure how to use it, ask pharmacist to demonstrate how. Should help open airways and improve cough, wheezing, and shortness of breath ? Mucinex during the day for your cough and cough suppressant only at night. Be sure to drink lots of water. Insurance may not cover a prescriptions for mucinex. Might be cheaper to get 400mg tablets and take 2 tablet in the morning, mid-day and evening with lots of water. *Promethazine DM cough syrup will cause drowsiness. Use only at night. No driving, operating machinery or caring for small children after taking it *Tessalon Perles will not cause drowsiness but use at bedtime to help stop cough so that you may get some rest. *Start steroid today. Helps with inflammation therefore, cough and wheezing. Follow directions on the package. Reviewed side effects. Patient reports taking them before. Follow up IMMEDIATELY for new or worsening of symptoms OR no noticeable improvement over the next 48-72 hours. 911 immediately for any life threatening symptoms such as chest pain or difficulty breathing Prescriptions: Benzonatate [Benzonatate 100mg cap] 100 mg PO Q8HP PRN #15 cap PRN Reason: Cough Transmission Status: Pending to [facility] Amoxicillin/Potassium Clav [Amox-Clav 875-125 mg Tablet] 1 tab PO BID #14 tab Transmission Status: Pending to [facility] methylPREDNISolone [Medrol 4mg tab] 4 mg PO DIRECTED #21 tab Transmission Status: Pending to [facility] Referrals: Maribeth Dejesus PA [Primary Care Provider] - As needed Time of Disposition: 11:53 Medical Decision Making - Bassem Inquiry Pt receiving controlled substance: No Bassem was queried for this patient: No Vital Signs: 12/15/21 11:15 Temperature 99.4 F Temperature Source Oral Pulse Rate [Right Brachial] 82 Respiratory Rate 20 Blood Pressure [Right Arm] 112/79 Blood Pressure Mean [Right Arm] 90 Blood Pressure Source [Right Arm] Automatic Cuff Blood Pressure Position [Right Arm] Sitting 02 Sat by Pulse Oximetry 99 Oxygen Delivery Method Room Air - Lab Data Lab Results 12/15/21 11:02: Strep Scn Rapid Clinic Negative Orders (Tests/Meds): ORDERS Category Date Time Status Strep Screen Confirmation Stat Micro 12/15/21 11:02 [place] [facility] [place] - General Stated complaint: sore throat,headache Time Seen by Provider: 12/15/21 11:43 Mode of Arrival: Ambulatory Source of Information: Patient Limitations: No Limitations Description of Symptoms (Recalled from Triage Doc. by RN): PATIENT C/O COUGH, SORE THROAT, HEADACHE AND CHEST CONGESTION HEENT Symptoms (Recalled from RN notes): Yes Resp Symptoms (Recalled from RN notes): Yes Skin Symptoms (Recalled from RN notes): No MS Symptoms (Recalled from RN notes): No Functional Status (Recalled from RN notes): WNL - History of Present Illness Provider Complaint: Patient state that she has not felt well for about a week States that she has been having sinus pain and pressure, cough, headache and feels like it is trying to move into her chest area states that today she was still not feeling well so she came in - Related Data Home Medications Medication Instructions Recorded Confirmed Psyllium Hus
[2021-12-15 11:57] VITALS: BP 112/79; PULSE 82; RESP 20; TEMP 37.4; O2SAT 99
== END 2021-12-15 11:58 | disposition home or self-care (01) ==
PROVIDERS: Emergency Provider Nurse Practitioner; PCP Physician Assistant
DX: J32.9 Chronic sinusitis, unspecified (principal); J02.9 Acute pharyngitis, unspecified; M51.16 Intervertebral disc disorders with radiculopathy, lumbar region; R51.9 Headache, unspecified; M54.9 Dorsalgia, unspecified; E53.8 Deficiency of other specified B group vitamins; G89.29 Other chronic pain; K22.70 Barrett's esophagus without dysplasia; K86.1 Other chronic pancreatitis; F41.9 Anxiety disorder, unspecified; Z79.1 Long term (current) use of non-steroidal anti-inflammatories (NSAID); Z79.52 Long term (current) use of systemic steroids; Z79.899 Other long term (current) drug therapy; Z82.49 Family history of ischemic heart disease and other diseases of the circulatory system; Z80.9 Family history of malignant neoplasm, unspecified; Z83.3 Family history of diabetes mellitus
CPT/HCPCS: 87880; 99213; G0463

== ENCOUNTER → 2022-10-11 14:50 | Outpatient (CLI) | payer OTHER, SELFPAY ==
[2022-10-11 17:08] LABS: Amphetamine/Metha Screen,Urine Negative ng/ml (<1000)
[2022-10-11 17:09] LABS: Barbiturates Screen,Urine Negative ng/ml (<200)
[2022-10-11 17:10] LABS: Benzodiazepines Screen,Urine Positive ng/ml (<200); Cannabinoid Screen,Urine Negative ng/ml (<50)
[2022-10-11 17:11] LABS: Cocaine Screen,Urine Negative ng/ml (<300)
[2022-10-11 17:12] LABS: Methadone Screen,Urine Negative ng/ml (<300); Opiate Screen,Urine Positive ng/ml (<300)
[2022-10-11 17:13] LABS: Phencyclidine Screen,Urine Negative ng/ml (<25)
[2022-10-15 11:33] LABS: Alprazolam Negative (Cutoff=100); Benzodiazepines Positive ng/mL (Cutoff=100); Clonazepam Negative (Cutoff=100); Flurazepam Negative (Cutoff=100); Lorazepam Negative (Cutoff=100); Midazolam Negative (Cutoff=100); Temazepam Positive (.); Triazolam Negative (Cutoff=100)
== END ==
PROVIDERS: PCP Physician Assistant; Visit Provider Physician Assistant
DX: G89.29 Other chronic pain (principal)
CPT/HCPCS: 80305; 80346

== ENCOUNTER 2023-04-08 16:01 | Emergency (ER) | payer OTHER, SELFPAY ==
[2023-04-08 16:02] VITALS: BP 117/80; PULSE 108; RESP 18; TEMP 37.6; O2SAT 99; BMI 23.6
--- NOTE | 2023-04-08 16:26 | EXP.UTC ---
Discharge Plan Disposition Patient Disposition: Home, Self-Care Condition: Good Prescriptions Prescriptions: New benzonatate [benzonatate] 100 mg capsule 100 mg PO TIDP PRN (Reason: Cough) Qty: 30 0RF ondansetron 4 mg Tablet,Disintegrating 4 mg PO Q8H PRN (Reason: Nausea) Qty: 12 0RF No Action cyanocobalamin (vitamin B-12) 1,000 mcg/mL kit 1,000 mcg IM QMONTH Qty: 1 3RF atorvastatin 10 mg tablet 10 mg PO DAILY Qty: 90 3RF cholecalciferol (vitamin D3) 25 mcg (1,000 unit) capsule 25 mcg PO DAILY Qty: 90 3RF omeprazole 40 mg capsule,delayed release(DR/EC) 40 mg PO DAILY 90 Days Qty: 90 3RF Rx Instructions: swallow whole; do not crush, chew, dissolve, cut, break Zenpep 40,000-126,000- 168,000 unit capsule,delayed release(DR/EC) 1 cap PO QID Qty: 120 2RF Rx Instructions: administer with meals and/or snacks calcium polycarbophil [FiberCon] 625 mg tablet 1,250 mg PO BID Qty: 120 2RF valacyclovir [Valtrex] 1 gram tablet 1,000 mg PO BID 10 Days Qty: 20 1RF hydrocodone-acetaminophen 7.5-325 mg tablet 1 tab PO QID Qty: 120 0RF gabapentin 300 mg capsule 300 mg PO BID PRN (Reason: shingles pain) Qty: 60 1RF promethazine 25 mg tablet 25 mg PO TID PRN (Reason: nausea and vomiting) Qty: 30 5RF polyethylene glycol 3350 17 GM powder in packet 17 g PO DAILY psyllium husk (aspartame) 3.4 GM powder in packet 3.4 g PO DAILY Referrals Follow up/Referrals: Maribeth Dejesus PA [Primary Care Provider] - See instructions Activity Restrictions/Add. Instructions Additional Instructions/Restrictions: Drink plenty of fluids. Take tylenol or ibuprofen for pain or fever. Follow up with your regular doctor. GO TO THE ER FOR ANY WORSENING SYMPTOMS Clinical Impressions Clinical Impression: Acute viral syndrome Instructions Patient Instructions: DI for Viral Syndrome Discharge ED Provider: Javier Abdullahi [facility] [place] HPI General Stated complaint: body aches, fever Mode of Arrival: Ambulatory Source of Information: Patient Limitations: No Limitations Time Seen by Provider: 04/08/23 16:26 Description of Symptoms (Recalled from Triage Doc. by RN): Patient reports fever and body aches since yesterday. HEENT Symptoms (Recalled from RN notes): No Resp Symptoms (Recalled from RN notes): No Skin Symptoms (Recalled from RN notes): No MS Symptoms (Recalled from RN notes): Yes Functional Status (Recalled from RN notes): wnl History of Present Illness Provider Complaint: She reports that for the past 2 days she has ran a fever up to 101, body aches, and malaise. She denies sore throat, sinus or chest congestion, and shortness of breath. She has had some nausea, but she denies any vomiting or diarrhea. She denies any abdominal pain and urinary symptoms Related Data Home Medications Medication Instructions Recorded Confirmed polyethylene glycol 3350 17 gram 17 g PO DAILY BOWELS 04/21/21 03/27/23 oral powder packet psyllium husk (aspartame) 3.4 gram 3.4 g PO DAILY BOWELS 04/21/21 03/27/23 oral powder packet Previous Rx's Medication Instructions Recorded atorvastatin 10 mg tablet 10 mg PO DAILY Cholesterol #90 tabs 06/19/22 cholecalciferol (vitamin D3) 25 25 mcg PO DAILY Supplement #90 caps 06/19/22 mcg (1,000 unit) capsule omeprazole 40 mg capsule,delayed 40 mg PO DAILY 90 days #90 caps 06/19/22 release cyanocobalamin (vitamin B-12) 1,000 mcg IM QMONTH Supplement #1 10/11/22 1,000 mcg/mL injection kit ea valacyclovir 1 gram tablet 1,000 mg PO BID 10 days #20 tabs 03/08/23 (Valtrex) calcium polycarbophil 625 mg 1,250 mg PO BID #120 tabs 03/27/23 tablet (FiberCon) gabapentin 300 mg capsule 300 mg PO BID PRN shingles pain 03/27/23 #60 caps hydrocodone 7.5 mg-acetaminophen 1 tab PO QID #120 tabs 03/27/23 325 mg tablet hyifcc-abctpbct-wkgnavz 1 cap PO QID #120 caps 03/27/23 40,000-126,000-168,000 unit capsule, delay rel (
[2023-04-08 16:40] LABS: UTC Influenza A Antigen Negative (Negative); UTC Influenza B Antigen Negative (Negative); UTC Strep Screen (Rapid) Negative (Negative)
[2023-04-08 16:59] VITALS: BP 117/80; PULSE 108; RESP 18; TEMP 37.6; O2SAT 99
[2023-04-08 17:05] LABS: Adenovirus,PCR Not Detected (NotDetected); Bordetella Pertussis Not Detected (NotDetected); Chlamydophila Pneumoniae, PCR Not Detected (NotDetected); Coronavirus 19, PCR Not Detected (NotDetected); Coronavirus 229E Not Detected (NotDetected); Coronavirus NL63 Not Detected (NotDetected); Coronavirus OC43 Not Detected (NotDetected); Coronovirus HKU1,PCR Not Detected (NotDetected); Human Metapneumovirus Not Detected (NotDetected); Influenza A, PCR Not Detected (NotDetected); Influenza AH1, 2009 Not Detected (NotDetected); Influenza AH1, PCR Not Detected (NotDetected); Influenza AH3,PCR Not Detected (NotDetected); Influenza B, PCR Not Detected (NotDetected); Mycoplasma Pneumoniae, PCR Not Detected (NotDetected); Parainfluenza 1, PCR Not Detected (NotDetected); Parainfluenza 2, PCR Not Detected (NotDetected); Parainfluenza 3, PCR Not Detected (NotDetected); Parainfluenza 4, PCR Not Detected (NotDetected); Respiratory Syncytial Virus Not Detected (NotDetected); Rhinovirus/Enterovirus Not Detected (NotDetected)
== END 2023-04-08 17:04 | disposition home or self-care (01) ==
PROVIDERS: Emergency Provider Nurse Practitioner Family; PCP Physician Assistant
DX: R50.9 Fever, unspecified (principal); B34.9 Viral infection, unspecified; M79.18 Myalgia, other site; R53.81 Other malaise; F41.9 Anxiety disorder, unspecified; K86.1 Other chronic pancreatitis
CPT/HCPCS: 87581; 87632; 87635; 87798; 87804; 87880; 99212; 99214; C9803; G0463; U0003; U0005

== ENCOUNTER 2023-04-09 07:42 | Emergency (ER) | payer OTHER, SELFPAY ==
[2023-04-09 07:42] VITALS: BP 123/86; PULSE 111; RESP 16; TEMP 36.7; O2SAT 100; BMI 23.6
--- NOTE | 2023-04-09 07:54 | XR_ITS ---
FINAL REPORT CLINICAL HISTORY: Fall with pain FINDINGS: RIGHT FOREARM SERIES Two views of the right forearm were obtained. There is no acute fracture or dislocation. The joint spaces are preserved. There is no soft tissue abnormality. IMPRESSION: No acute abnormality. Reviewed, Interpreted and Dictated by Trung العراقي III, MD Transcribed by Herber Dockery Authenticated and . [facility]
--- NOTE | 2023-04-09 08:03 | HMH.EDGENADL ---
Discharge Plan Disposition Patient Disposition: Home, Self-Care Prescriptions Prescriptions: No Action cyanocobalamin (vitamin B-12) 1,000 mcg/mL kit 1,000 mcg IM QMONTH Qty: 1 3RF atorvastatin 10 mg tablet 10 mg PO DAILY Qty: 90 3RF cholecalciferol (vitamin D3) 25 mcg (1,000 unit) capsule 25 mcg PO DAILY Qty: 90 3RF omeprazole 40 mg capsule,delayed release(DR/EC) 40 mg PO DAILY 90 Days Qty: 90 3RF Rx Instructions: swallow whole; do not crush, chew, dissolve, cut, break Zenpep 40,000-126,000- 168,000 unit capsule,delayed release(DR/EC) 1 cap PO QID Qty: 120 2RF Rx Instructions: administer with meals and/or snacks calcium polycarbophil [FiberCon] 625 mg tablet 1,250 mg PO BID Qty: 120 2RF valacyclovir [Valtrex] 1 gram tablet 1,000 mg PO BID 10 Days Qty: 20 1RF hydrocodone-acetaminophen 7.5-325 mg tablet 1 tab PO QID Qty: 120 0RF gabapentin 300 mg capsule 300 mg PO BID PRN (Reason: shingles pain) Qty: 60 1RF promethazine 25 mg tablet 25 mg PO TID PRN (Reason: nausea and vomiting) Qty: 30 5RF polyethylene glycol 3350 17 GM powder in packet 17 g PO DAILY psyllium husk (aspartame) 3.4 GM powder in packet 3.4 g PO DAILY benzonatate [benzonatate] 100 mg capsule 100 mg PO TIDP PRN (Reason: Cough) Qty: 30 0RF ondansetron 4 mg Tablet,Disintegrating 4 mg PO Q8H PRN (Reason: Nausea) Qty: 12 0RF Referrals Follow up/Referrals: Maribeth Dejesus PA [Primary Care Provider] - See instructions Brady Soares DO [Staff Physician] - See instructions (in 1-2 weeks if you are not improving for more advanced imaging (CT or MRI) to evaluate for occult fracture. No need to follow up if you have a trajectory of improvement. ) Activity Restrictions/Add. Instructions Additional Instructions/Restrictions: Please wear your volar Velcro wrist splint as needed for comfort. You may take Tylenol or ibuprofen as needed for pain. Please follow-up with your primary care doctor or with Dr. Soares with orthopedic surgery in 1 to 2 weeks if your symptoms or not improving. Clinical Impressions Clinical Impression: Right wrist sprain Discharge ED Provider: Wei (ED)Reji General Adult HPI General Chief complaint: Extremity Injury, Upper Stated complaint: Fall@home 04/08 RT wrist/arm pain Time Seen by Provider: 04/09/23 07:58 Mode of Arrival: Ambulatory Source of Information: Patient Limitations: No Limitations Description of Symptoms (Recalled from ER Triage Doc. by RN): pt to the ED with right wrist and forearm pain after tripping over her cat last night. History of Present Illness HPI narrative: Patient is a 53-year-old female presenting with right wrist pain after a fall. She is unsure as to exactly when this happened and told me to different time periods but she believes this happened around 6 AM when she got out of bed and tripped over her cat falling backwards injuring her right arm. She is also unsure as to exactly how she fell onto her arm she does not know whether or not she fell backwards on to it with it behind her back or on outstretched arm. Nonetheless she has significant pain of the dorsal aspect of the distal radius and has pain from her hand through her mid forearm. No soft tissue swelling or deformity. She took Tylenol prior to arrival. Related Data Home Medications Medication Instructions Recorded Confirmed polyethylene glycol 3350 17 gram 17 g PO DAILY BOWELS 04/21/21 03/27/23 oral powder packet psyllium husk (aspartame) 3.4 gram 3.4 g PO DAILY BOWELS 04/21/21 03/27/23 oral powder packet Previous Rx's Medication Instructions Recorded atorvastatin 10 mg tablet 10 mg PO DAILY Cholesterol #90 tabs 06/19/22 cholecalciferol (vitamin D3) 25 25 mcg PO DAILY Supplement #90 caps 06/19/22 mcg (1,000 unit) capsule omeprazole 40 mg capsule,delayed 40 mg PO DAILY 90 days #90 caps 06/19/22 release cyanocobalamin (vitamin B-12
--- NOTE | 2023-04-09 08:06 | XR_ITS ---
FINAL REPORT CLINICAL HISTORY: fall pain FINDINGS: RIGHT WRIST SERIES Three views of the right wrist were obtained. There is no acute fracture or dislocation. There is mild degenerative change. There is soft tissue swelling of the wrist. IMPRESSION: Mild degenerative change. Reviewed, Interpreted and Dictated by Trung العراقي III, MD Transcribed by Herber Dockery Authenticated and [facility]
[2023-04-09 08:39] VITALS: BP 97/73; PULSE 110; RESP 19; TEMP 36.7
== END 2023-04-09 08:42 | disposition home or self-care (01) ==
PROVIDERS: Emergency Provider Emergency Medicine; PCP Physician Assistant
DX: S63.501A Unspecified sprain of right wrist, initial encounter (principal); F41.9 Anxiety disorder, unspecified; K86.1 Other chronic pancreatitis; M51.16 Intervertebral disc disorders with radiculopathy, lumbar region; W01.0XXA Fall on same level from slipping, tripping and stumbling without subsequent striking against object, initial encounter
CPT/HCPCS: 73090; 73110; 99283; 99284

== ENCOUNTER → 2023-08-15 13:13 | Outpatient (CLI) | payer OTHER, SELFPAY ==
[2023-08-15 13:01] LABS: Basophils % 0.4 % (0.1-2.0); Eosinophils # 0.1 K/mm3 (0.0-0.4); Eosinophils % 2.9 % (0.1-12.0); Hematocrit 35.4 % (37.0-47.0); Hemoglobin 10.9 g/dL (12.2-16.2); Lymphocytes # 1.9 K/mm3 (0.7-4.5); Lymphocytes % 44.1 % (10-50); Mean Corpuscular HGB Conc 30.7 g/dL (31.8-35.4); Mean Corpuscular Hemoglobin 24.6 pg (27.0-31.2); Mean Corpuscular Volume 80.4 fl (81-99); Monocytes # 0.3 K/mm3 (0.1-1.0); Monocytes % 5.8 % (1.7-9.3); Neutrophils % 46.8 % (37.0-80.0); Platelet Count 257 K/mm3 (142-424); Red Blood Count 4.41 M/mm3 (4.20-5.40); Red Cell Distribution Width 17.9 % (11.5-17.5); White Blood Count 4.3 K/mm3 (4.8-10.8)
[2023-08-15 13:55] LABS: Alanine Aminotransferase 29 U/L (12-78); Albumin Level 4.5 g/dl (3.5-5.0); Albumin/Globulin Ratio 1.4 (1.1-1.8); Alkaline Phosphatase 166 U/L (38-126); Anion Gap 15.4 mEq/L (5-15); Aspartate Amino Transferase 46 U/L (14-36); Bilirubin,Total 0.4 mg/dl (0.2-1.3); Blood Urea Nitrogen 15 mg/dl (7-17); Calcium 9.5 mg/dl (8.4-10.2); Carbon Dioxide 25 mmol/L (22.0-30.0); Chloride 102 mmol/L (98-107); Cholesterol 237 mg/dl (140-200); Estimated Glomerular Filt Rate 129 ml/min (>60); GFR (African American) 156 ML/MIN (>60); Globulin 3.2 g/dL (1.3-3.2); Glucose 94 mg/dl (74-100); Potassium 4.4 mmoL/L (3.5-5.1); Sodium 138 mmol/L (136-145); Total Protein,Serum 7.7 g/dl (6.3-8.2); Triglycerides 114 mg/dl (30-150); VLDL Cholesterol 23 mg/dL (0-40)
[2023-08-15 14:03] LABS: Chol/HDL Ratio 2.4 (1-3.5); HDL Cholesterol 99 mg/dl (40-60)
[2023-08-15 14:07] LABS: Direct LDL Cholesterol 93.93 mg/dL (100-129)
[2023-08-15 14:17] LABS: 25-OH Vitamin D, Total < 12.8 ng/mL (30-100)
[2023-08-15 14:27] LABS: Thyroid Stimulating Hormone 0.72 uIU/mL (0.465-4.68)
[2023-08-15 14:46] LABS: Vitamin B12 792 pg/mL (239-931)
[2023-08-15 22:43] LABS: Amphetamine/Metha Screen,Urine Negative ng/ml (<1000); Barbiturates Screen,Urine Negative ng/ml (<200)
[2023-08-15 22:44] LABS: Benzodiazepines Screen,Urine Negative ng/ml (<200)
[2023-08-15 22:45] LABS: Cannabinoid Screen,Urine Negative ng/ml (<50); Cocaine Screen,Urine Negative ng/ml (<300)
[2023-08-15 22:46] LABS: Methadone Screen,Urine Negative ng/ml (<300)
[2023-08-15 22:47] LABS: Phencyclidine Screen,Urine Negative ng/ml (<25)
[2023-08-15 22:48] LABS: Opiate Screen,Urine Positive ng/ml (<300)
[2023-08-17 10:09] LABS: HBsAg Screen Negative (Negative); HCV Ab Non Reactive (Non Reactive); Hep A Ab, IGM Negative (Negative); Hep B Core Ab, IgM Negative (Negative)
== END ==
PROVIDERS: PCP Physician Assistant; Visit Provider Physician Assistant
DX: Z00.00 Encounter for general adult medical examination without abnormal findings (principal); R89.9 Unspecified abnormal finding in specimens from other organs, systems and tissues; G89.29 Other chronic pain; E55.9 Vitamin D deficiency, unspecified; Z68.23 Body mass index [BMI] 23.0-23.9, adult
CPT/HCPCS: 80053; 80061; 80074; 80305; 82306; 82607; 84443; 85025

== ENCOUNTER → 2023-08-15 23:36 | Outpatient (CLI) | payer OTHER, SELFPAY | PROVIDERS: PCP Physician Assistant; Visit Provider Physician Assistant | DX: Z00.00 Encounter for general adult medical examination without abnormal findings (principal) ==

== ENCOUNTER 2023-10-10 16:55 | Outpatient (CLI) | payer OTHER, SELFPAY ==
[2023-10-10 13:05] LABS: Amphetamine/Metha Screen,Urine Negative ng/ml (<1000); Barbiturates Screen,Urine Negative ng/ml (<200); Benzodiazepines Screen,Urine Negative ng/ml (<200); Cocaine Screen,Urine Negative ng/ml (<300); Methadone Screen,Urine Negative ng/ml (<300); Opiate Screen,Urine Positive ng/ml (<300); Phencyclidine Screen,Urine Negative ng/ml (<25)
[2023-10-10 13:11] LABS: Cannabinoid Screen,Urine Negative ng/ml (<50)
== END 2023-10-10 23:59 ==
LOC: LAB.DROPOF 16:55
PROVIDERS: PCP Physician Assistant; Visit Provider Physician Assistant
DX: G89.29 Other chronic pain (principal)
CPT/HCPCS: 80307

== ENCOUNTER 2023-10-11 16:41 | Emergency (ER) | payer OTHER, SELFPAY ==
--- NOTE | 2023-10-11 16:55 | EXP.UTC ---
Discharge Plan Disposition Patient Disposition: Home, Self-Care Condition: Good Prescriptions Prescriptions: New cyclobenzaprine 10 mg Tablet 10 mg PO BID PRN (Reason: Muscle Spasm) Qty: 20 0RF ibuprofen [IBU] 800 mg tablet 800 mg PO Q8HP PRN (Reason: Moderate Pain) Qty: 30 0RF No Action hydrocodone-acetaminophen 7.5-325 mg tablet 1 tab PO QID Qty: 120 0RF cholecalciferol (vitamin D3) 25 mcg (1,000 unit) capsule 25 mcg PO DAILY Qty: 90 3RF calcium polycarbophil [FiberCon] 625 mg tablet 1,250 mg PO BID Qty: 120 2RF valacyclovir [Valtrex] 1 gram tablet 1,000 mg PO BID 10 Days Qty: 20 1RF atorvastatin 10 mg tablet 10 mg PO DAILY Qty: 90 3RF cholecalciferol (vitamin D3) 1,250 mcg (50,000 unit) capsule 1,250 mcg PO WEEKLY Qty: 12 2RF cyanocobalamin (vitamin B-12) 1,000 mcg/mL solution See Rx Instructions .ROUTE .COMPLEX Qty: 1 3RF Dose Instruction: INJECT 1 ML INTO A MUSCLE FOR SUPPLEMENT Rx Instructions: INJECT 1 ML INTO A MUSCLE FOR SUPPLEMENT omeprazole 40 mg capsule,delayed release(DR/EC) 40 mg PO DAILY 90 Days Qty: 90 3RF Rx Instructions: swallow whole; do not crush, chew, dissolve, cut, break promethazine 25 mg tablet 25 mg PO TID PRN (Reason: nausea and vomiting) Qty: 30 5RF polyethylene glycol 3350 17 GM powder in packet 17 g PO DAILY Referrals Follow up/Referrals: Maribeth Dejesus PA [Primary Care Provider] - See instructions Activity Restrictions/Add. Instructions Additional Instructions/Restrictions: Go home and rest. It would be best if you rested tomorrow too. No heavy lifting. No twisting. Take the oral medications as directed. The muscle relaxer (cyclobenzaprine--Flexeril) will make you drowsy, so don't drive or operate heavy machinery after taking it. Follow up with your regular doctor. GO TO THE ER FOR ANY WORSENING SYMPTOMS OR CONCERN, ESPECIALLY BOWEL OR BLADDER ISSUES, SADDLE AREA NUMBNESS, FEVER, ETC Clinical Impressions Clinical Impression: Low back pain, Thoracic back pain, Rib pain Instructions Patient Instructions: Low Back Pain, DI for Rib Contusion, Cyclobenzaprine, DI for Thoracic Back Pain Discharge ED Provider: Javier Abdullahi [facility] General Stated complaint: Ao01/04 fall rib pain Time Seen by Provider: 10/11/23 16:55 History of Present Illness Provider Complaint: She states that earlier today she was carrying a baby in a car seat when she stumbled and almost fell. When this happened the car seat pushed into her left ribs. She has had left rib pain and low back pain since this happened. She denies any other injury. Related Data Home Medications Medication Instructions Recorded Confirmed polyethylene glycol 3350 17 gram 17 g PO DAILY BOWELS 04/21/21 10/10/23 oral powder packet Previous Rx's Medication Instructions Recorded cholecalciferol (vitamin D3) 25 25 mcg PO DAILY Supplement #90 caps 06/19/22 mcg (1,000 unit) capsule calcium polycarbophil 625 mg 1,250 mg PO BID #120 tabs 03/27/23 tablet (FiberCon) atorvastatin 10 mg tablet 10 mg PO DAILY Cholesterol #90 tabs 05/23/23 valacyclovir 1 gram tablet 1,000 mg PO BID 10 days #20 tabs 08/15/23 (Valtrex) cholecalciferol (vitamin D3) 1,250 1,250 mcg PO WEEKLY vitamin d 08/20/23 mcg (50,000 unit) capsule deficeincy #12 caps cyanocobalamin (vitamin B-12) See Rx Instructions .Route 08/20/23 1,000 mcg/mL injection solution .COMPLEX #1 mL omeprazole 40 mg capsule,delayed 40 mg PO DAILY 90 days #90 caps 08/20/23 release promethazine 25 mg tablet 25 mg PO TID PRN nausea and 08/20/23 vomiting #30 tabs hydrocodone 7.5 mg-acetaminophen 1 tab PO QID #120 tabs 10/10/23 325 mg tablet cyclobenzaprine 10 mg tablet 10 mg PO BID PRN Muscle Spasm #20 10/11/23 tabs ibuprofen 800 mg tablet (IBU) 800 mg PO Q8HP PRN Moderate Pain 10/11/23 #30 tabs Allergies Allergy/AdvReac Type Severity Reaction Status Date / Time No Known Allergies Allergy Verified 10/11/23 17:10 [facility] Disclaimer: The information contained in this section may have been updated after the patient was seen, as this information can be updated by other users. 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 current occupational exposures/hazards: No caffeine: Yes ROS Obtained: Yes All systems reviewed & no additional complaints except as documented Constitutional Constitutional: Denies chills and Denies fever(s) Eyes Eyes: Denies eye discharge ENT Ears, Nose, Mouth, and Throat: Denies dizziness, Denies otalgia and Denies sore throat Cardiovascular Cardiovascular: Denies chest pain Respiratory Respiratory: Denies shortness of breath, Denies chest congestion, Denies cough, Denies stridor and Denies wheezing Gastrointestinal Gastrointestingal: Denies nausea or vomiting Musculoskeletal Musculoskeletal: Reports back pain Integumentary/Breasts Skin/Breast: Denies rash Neurologic Neurologic: Denies dizziness and Denies paresthesias Allergic/Immunologic Allergic/Immunologic: Denies wheezing Physical Exam General General appearance: alert and in no apparent distress Head Head exam: atraumatic, normocephalic and normal inspection Eye Eye exam: Present normal appearance, PERRL and EOMI ENT ENT exam: Present normal exam, normal oropharynx, mucous membranes moist, TM's normal bilaterally and normal external ear exam Neck Neck exam: Present normal inspection, full ROM and trachea midline; Absent meningismus or lymphadenopathy Chest Chest inspection: Present symmetric chest wall rise and tenderness Respiratory Respiratory exam: Present normal lung sounds bilaterally; Absent respiratory distress Cardiovascular Cardiovascular exam: Present regular rate and normal rhythm; Absent JVD Abdominal Exam Abdominal exam: Present soft and normal bowel sounds; Absent distention, tenderness or guarding Extremities Exam Extremities exam: Present normal inspection, full ROM and normal capillary refill; Absent calf tenderness Back Exam Back exam: Present normal inspection; Absent tenderness Neurological Exam Neurological exam: Present alert, oriented X3, CN II-XII intact, normal gait and reflexes normal; Absent motor sensory deficit Expanded Neurological Exam Patient oriented to: Present person, place and time Speech: Present fluid speech Cranial nerves: Normal: EOM function (II, III, IV, ), facial sensation (V), facial palsy (VII), gag reflex (IX), spinal accessory function (XI) and tongue deviation (XII) Cerebellar function: normal gait Motor strength - LUE: 5/5 Motor strength - RUE: 5/5 Motor strength - LLE: 5/5 Motor strength - RLE: 5/5 Upper motor neuron exam: Normal: demi neglect and sensory extinction Sensory exam upper extremity: Normal: light touch and 2 point discrimination Sensory exam lower extremity: Normal: light touch and 2 point discrimination DTR: 2+: biceps (L), biceps (R), patellar (L), patellar (R), Achilles tendon (L) and Achilles tendon (R) Spinal cord function: Absent normal rectal tone Psychiatric Psychiatric exam: Present normal affect and normal mood Skin Skin exam: Present warm, dry, intact and normal color Lymphatic Lymphatic Findings: no adenopathy Medical Decision Making Medical Records Medical records reviewed: No I reviewed the patient's medical records. Bassem Inquiry Pt receiving controlled substance: No
--- NOTE | 2023-10-11 16:56 | XR_ITS ---
PROCEDURE INFORMATION: Exam: XR Left Ribs with PA Chest Exam date and time: 10/11/2023 4:54 PM Age: 53 years old Clinical indication: Injury or trauma; Fall; Rib area, left side; Blunt trauma TECHNIQUE: Imaging protocol: Radiologic exam of the left ribs with PA chest. Views: 3 views Total images: 4 COMPARISON: CR XR THORACIC SPINE 3V 09/23/2019 9:57 AM FINDINGS: Lungs: Unremarkable. No consolidation. Pleural spaces: Unremarkable. No pleural effusion. No pneumothorax. Heart/Mediastinum: Unremarkable. No cardiomegaly. Bones/joints: Unremarkable. IMPRESSION: No acute findings.
--- NOTE | 2023-10-11 16:56 | XR_ITS ---
PROCEDURE INFORMATION: Exam: XR Thoracic Spine Exam date and time: 10/11/2023 4:58 PM Age: 53 years old Clinical indication: Injury or trauma; Fall; Blunt trauma (contusions or hematomas) TECHNIQUE: Imaging protocol: Radiologic exam of the thoracic spine. Views: 2 views. Total images: 2 COMPARISON: CR XR THORACIC SPINE 3V 09/23/2019 9:57 AM FINDINGS: Bones/joints: The thoracic spine demonstrates mild degenerative changes at multiple levels. No evidence of acute fracture. Soft tissues: Unremarkable. IMPRESSION: 1. The thoracic spine demonstrates mild degenerative changes at multiple levels. 2. No evidence of acute fracture.
--- NOTE | 2023-10-11 16:56 | XR_ITS ---
PROCEDURE INFORMATION: Exam: XR Lumbosacral Spine Exam date and time: 10/11/2023 5:02 PM Age: 53 years old Clinical indication: Injury or trauma; Fall; Blunt trauma (contusions or hematomas) TECHNIQUE: Imaging protocol: Radiologic exam of the lumbosacral spine. Views: 2 or 3 views. Total images: 3 COMPARISON: MR LUMBAR SPINE WO CON 09/17/2020 4:05 PM FINDINGS: Bones/joints: The lumbar spine demonstrates mild degenerative changes at multiple levels. 5 mm retrolisthesis of L3 on L4. Soft tissues: Unremarkable. Gastrointestinal tract: Large amount of stool is present throughout the colon. Bowel gas pattern is nonobstructive and nonspecific. Organs: Status post cholecystectomy. IMPRESSION: 1. 5 mm retrolisthesis of L3 on L4. 2. The lumbar spine demonstrates mild degenerative changes at multiple levels. 3. Bowel gas pattern is nonobstructive and nonspecific. 4. Large amount of stool is present throughout the colon.
[2023-10-11 17:00] VITALS: BP 120/74; PULSE 94; RESP 18; TEMP 36.4; O2SAT 100; BMI 25.7
[2023-10-11 17:52] VITALS: BP 120/74; PULSE 94; RESP 18; TEMP 36.4; O2SAT 100
== END 2023-10-11 17:52 | disposition home or self-care (01) ==
PROVIDERS: Emergency Provider Nurse Practitioner Family; PCP Physician Assistant
DX: R07.81 Pleurodynia (principal); M54.50 Low back pain, unspecified; K86.1 Other chronic pancreatitis; M51.16 Intervertebral disc disorders with radiculopathy, lumbar region; F41.9 Anxiety disorder, unspecified; W22.8XXA Striking against or struck by other objects, initial encounter
CPT/HCPCS: 71101; 72070; 72100; 99212; 99214; G0463

== ENCOUNTER 2024-01-10 16:52 | Emergency (ER) | payer OTHER, SELFPAY ==
--- NOTE | 2024-01-10 16:56 | XR_ITS ---
PROCEDURE INFORMATION: Exam: XR Right Shoulder Exam date and time: 01/10/2024 4:55 PM Age: 53 years old Clinical indication: Injury or trauma; Fall; Blunt trauma (contusions or hematomas); Shoulder; Right TECHNIQUE: Imaging protocol: Radiologic exam of the right shoulder. Views: 2 or more views. COMPARISON: No relevant prior studies available. FINDINGS: Bones/joints: There are mild degenerative changes at the AC joint. Glenohumeral joint is fairly well preserved. There is no fracture, malalignment or underlying osseous lesion detected. Soft tissues: Normal. IMPRESSION: No acute bony abnormalities.
[2024-01-10 17:25] VITALS: BP 112/90; PULSE 116; RESP 18; TEMP 36.8; O2SAT 100; BMI 25.7
--- NOTE | 2024-01-10 17:45 | EXP.UTC ---
Discharge Plan Disposition Patient Disposition: Home, Self-Care Condition: Good Prescriptions Prescriptions: No Action cholecalciferol (vitamin D3) 25 mcg (1,000 unit) capsule 25 mcg PO DAILY Qty: 90 3RF calcium polycarbophil [FiberCon] 625 mg tablet 1,250 mg PO BID Qty: 120 2RF valacyclovir [Valtrex] 1 gram tablet 1,000 mg PO BID 10 Days Qty: 20 1RF atorvastatin 10 mg tablet 10 mg PO DAILY Qty: 90 3RF cholecalciferol (vitamin D3) 1,250 mcg (50,000 unit) capsule 1,250 mcg PO WEEKLY Qty: 12 2RF omeprazole 40 mg capsule,delayed release(DR/EC) 40 mg PO DAILY 90 Days Qty: 90 3RF Rx Instructions: swallow whole; do not crush, chew, dissolve, cut, break cyanocobalamin (vitamin B-12) 1,000 mcg/mL solution See Rx Instructions .ROUTE .COMPLEX Qty: 1 3RF Dose Instruction: INJECT 1 ML INTO A MUSCLE FOR SUPPLEMENT Rx Instructions: INJECT 1 ML INTO A MUSCLE FOR SUPPLEMENT promethazine 25 mg tablet 25 mg PO TID PRN (Reason: nausea and vomiting) Qty: 30 5RF hydrocodone-acetaminophen 7.5-325 mg tablet 1 tab PO Q6H PRN (Reason: pain) Qty: 120 0RF polyethylene glycol 3350 17 GM powder in packet 17 g PO DAILY Referrals Follow up/Referrals: Maribeth Dejesus PA [Primary Care Provider] - See instructions Brady Soares DO [Staff Physician] - See instructions Activity Restrictions/Add. Instructions Additional Instructions/Restrictions: *RICE, Rest the extremity, Ice 15-20 minutes 3-4 times daily, Compress- wear the leona wrap as discussed as much as possible to help reduce swelling and pain, Elevate the extremity when at rest *Sling is for support and help control swelling, use it except in the shower. Be sure that is not to tight but not to loose either make sure to move arm to prevent frozen shoulder *Elevate when resting? *Ibuprofen 600-800mg every 6-8 hours as needed for pain an inflammation. If your Doctor has said you can take it with your prescribed pain medication Immediately follow up with your family doctor for new or worsening of symptoms, or no noticeable improvement over the next 3-5 days Clinical Impressions Clinical Impression: Right shoulder pain Instructions Patient Instructions: DI for Shoulder Pain Discharge ED Provider: Jayne Plummer [facility] [place] H[place] General Stated complaint: AO04/03 RT shoulder inj Mode of Arrival: Ambulatory Source of Information: Patient Limitations: No Limitations Time Seen by Provider: 01/10/24 17:46 Description of Symptoms (Recalled from Triage Doc. by RN): PATIENT C/O INJURY TO RIGHT SHOULDER AFTER FALLING THROUGH A HOLE IN HER BATHROOM FLOOR LAST NIGHT. DENIES ANY OTHER INJURIES HEENT Symptoms (Recalled from RN notes): No Resp Symptoms (Recalled from RN notes): No Skin Symptoms (Recalled from RN notes): No MS Symptoms (Recalled from RN notes): Yes Functional Status (Recalled from RN notes): WNL History of Present Illness Provider Complaint: Patient states that she feel in a hole on her bathroom floor last night and hit her right shoulder on the toilet states that she didnt hurt herself anywhere else just her shoulder Denies any other injuries States that today it was still sore and hurt when she would move it so she came in to get it checked Related Data Home Medications Medication Instructions Recorded Confirmed polyethylene glycol 3350 17 gram 17 g PO DAILY BOWELS 04/21/21 12/24/23 oral powder packet Previous Rx's Medication Instructions Recorded cholecalciferol (vitamin D3) 25 25 mcg PO DAILY Supplement #90 caps 06/19/22 mcg (1,000 unit) capsule calcium polycarbophil 625 mg 1,250 mg (2 x 625 mg) PO BID #120 03/27/23 tablet (FiberCon) tabs atorvastatin 10 mg tablet 10 mg PO DAILY Cholesterol #90 tabs 05/23/23 valacyclovir 1 gram tablet 1,000 mg PO BID 10 days #20 tabs 08/15/23 (Valtrex) cholecalciferol (vitamin D3) 1,250 1,250 mcg PO WEEKLY vitamin d 08/20/23 mcg (50,000 unit) capsule deficeincy #12 caps omeprazole 40 mg capsule,delayed 40 mg PO DAILY 90 days #90 caps 08/20/23 release cyanocobalamin (vitamin B-12) See Rx Instructions .Route 12/25/23 1,000 mcg/mL injection solution .COMPLEX #1 mL promethazine 25 mg tablet 25 mg PO TID PRN nausea and 12/25/23 vomiting #30 tabs hydrocodone 7.5 mg-acetaminophen 1 tab PO Q6H PRN pain #120 tabs 01/02/24 325 mg tablet Allergies Allergy/AdvReac Type Severity Reaction Status Date / Time No Known Allergies Allergy Verified 12/24/23 09:48 Worker's Comp Is this a Worker's Comp case?: No [facility] Disclaimer: The information contained in this section may have been updated after the patient was seen, as this information can be updated by other users. 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[employer] current occupational exposures/hazards: No caffeine: Yes ROS Obtained: Yes All systems reviewed & no additional complaints except as documented and Yes Systems reviewed as appropriate & no additional complaints except as documented Constitutional Constitutional: Reports system reviewed and no additional complaints, except as documented and Reports as per HPI ENT Ears, Nose, Mouth, and Throat: Reports system reviewed and no additional complaints, except as documented and Reports as per HPI Cardiovascular Cardiovascular: Reports system reviewed and no additional complaints, except as documented and Reports as per HPI Respiratory Respiratory: Reports system reviewed and no additional complaints, except as documented and Reports as per HPI Musculoskeletal Musculoskeletal: Reports system reviewed and no additional complaints, except as documented, Reports as per HPI and Reports other Comments: Pain in right shoulder with movement after falling through floor last night in bathroom and hitting shoulder on the toilet Physical Exam General General appearance: alert and in no apparent distress Respiratory Respiratory exam: Present normal lung sounds bilaterally; Absent respiratory distress or wheezes Cardiovascular Cardiovascular exam: Present regular rate, normal rhythm and normal heart sounds Expanded Upper Extremity Exam Right: Shoulder exam: Present tenderness; Absent swelling, abrasion, laceration, ecchymosis, deformity, dislocation or erythema Back Exam Back exam: Present normal inspection and full ROM Neurological Exam Neurological exam: Present alert, oriented X3 and normal gait Medical Decision Making Bassem Inquiry Pt receiving controlled substance: No Bassem was queried for this patient: No Vital Signs: 01/10/24 17:25 Temperature 98.3 F Temperature Source Oral Pulse Rate [Left Brachial] 116 H Respiratory Rate 18 Blood Pressure [Left Arm] 112/90 Blood Pressure Mean [Left Arm] 97 Blood Pressure Source [Left Arm] Automatic Cuff Blood Pressure Position [Left Arm] Sitting 02 Sat by Pulse Oximetry 100 Oxygen Delivery Method Room Air Orders (Tests/Meds): ORDERS Category Date Time Status XR shoulder RT min 2V Stat Exams 01/10/24 16:56 Completed Radiology Data #1: Image(s): Shoulder Image Reviewed: Yes I have reviewed radiologist's interpretation FINDINGS: Bones/joints: There are mild degenerative changes at the AC joint. Glenohumeral joint is fairly well preserved. There is no fracture, malalignment or underlying osseous lesion detected. Soft tissues: Normal. IMPRESSION: No acute bony abnormalities. Procedures Orthopedic Splinting/Casting Injury #1: Side: right Upper Extremity Injury Location: shoulder Upper Extremity Immobilizer: sling Post Cast/Splinting Neuro Status: intact and no change Post Cast/Splinting Vasc Status: intact and no change
[2024-01-10 18:08] VITALS: BP 112/90; PULSE 116; RESP 18; TEMP 36.8; O2SAT 100
== END 2024-01-10 18:11 | disposition home or self-care (01) ==
PROVIDERS: Emergency Provider Nurse Practitioner; PCP Physician Assistant
DX: M25.511 Pain in right shoulder (principal); W18.42XA Slipping, tripping and stumbling without falling due to stepping into hole or opening, initial encounter
CPT/HCPCS: 73030; 99212; 99214; G0463

== ENCOUNTER 2024-01-15 12:28 | Emergency (ER) | payer OTHER, SELFPAY ==
[2024-01-15 12:37] VITALS: BP 120/89; PULSE 110; RESP 20; TEMP 36.6; O2SAT 99; BMI 26.5
--- NOTE | 2024-01-15 12:40 | PC.NURSE ---
DR HO AT BEDSIDE
[2024-01-15] MEDS: DEXAMETHASONE 4MG TABLET 10 MG PO (12:55)
[2024-01-15] MEDS: KETOROLAC 30MG/ML VIAL 15 MG IM (12:55)
--- NOTE | 2024-01-15 12:55 | PC.NURSE ---
PT MEDICATED PER EMAR, NO NEEDS AT THIS TIME. CALL LIGHT WITHIN REACH
[2024-01-15] MEDS: METHOCARBAMOL 500MG TABLET 1500 MG PO (12:56)
--- NOTE | 2024-01-15 12:57 | ED_ITS ---
Discharge Plan Disposition Patient Disposition: Home, Self-Care Prescriptions Prescriptions: New dexamethasone 6 mg tablet 6 mg PO DAILY Qty: 5 0RF methocarbamol 750 mg tablet 1,500 mg PO TID 5 Days Qty: 30 0RF No Action cholecalciferol (vitamin D3) 25 mcg (1,000 unit) capsule 25 mcg PO DAILY Qty: 90 3RF calcium polycarbophil [FiberCon] 625 mg tablet 1,250 mg PO BID Qty: 120 2RF valacyclovir [Valtrex] 1 gram tablet 1,000 mg PO BID 10 Days Qty: 20 1RF atorvastatin 10 mg tablet 10 mg PO DAILY Qty: 90 3RF cholecalciferol (vitamin D3) 1,250 mcg (50,000 unit) capsule 1,250 mcg PO WEEKLY Qty: 12 2RF omeprazole 40 mg capsule,delayed release(DR/EC) 40 mg PO DAILY 90 Days Qty: 90 3RF Rx Instructions: swallow whole; do not crush, chew, dissolve, cut, break cyanocobalamin (vitamin B-12) 1,000 mcg/mL solution See Rx Instructions .ROUTE .COMPLEX Qty: 1 3RF Dose Instruction: INJECT 1 ML INTO A MUSCLE FOR SUPPLEMENT Rx Instructions: INJECT 1 ML INTO A MUSCLE FOR SUPPLEMENT promethazine 25 mg tablet 25 mg PO TID PRN (Reason: nausea and vomiting) Qty: 30 5RF hydrocodone-acetaminophen 7.5-325 mg tablet 1 tab PO Q6H PRN (Reason: pain) Qty: 120 0RF polyethylene glycol 3350 17 GM powder in packet 17 g PO DAILY Referrals Follow up/Referrals: Provider,Referral, MD [Primary Care Provider] - See instructions Activity Restrictions/Add. Instructions Additional Instructions/Restrictions: Follow-up with your family doctor regarding this visit to the emergency department within 48 hours to ensure improvement. Steroid and muscle relaxer as prescribed. Methocarbamol can cause you to feel drowsy. Do not drive, operate heavy machinery, or engage in any activity that may make you tired, fall asleep, and because harm to yourself or others while taking this medication. Clinical Impressions Clinical Impression: Cervical radiculopathy, Neurapraxia of right upper extremity Discharge ED Provider: Isak Kline General Adult [facility] General Chief complaint: Extremity Injury, Upper Stated complaint: severe Rt shoulder/side pain Time Seen by Provider: 01/15/24 12:34 Mode of Arrival: Wheelchair Source of Information: Patient Limitations: No Limitations Description of Symptoms (Recalled from ER Triage Doc. 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 HAD PREVIOUS FALL TO SAME ARM ON SUNDAY. PAIN WORSE WITH MOVING FINGERS. TOOK HYDROCODONE ABOUT 1 HOUR AGO History of Present Illness HPI narrative: 53-year-old female history of chronic neck and back pain, chronic pancreatitis on Hardy presenting with right upper extremity pain. Patient states that a few days prior to this visit, [facility], caught her self with her right shoulder. Came to the urgent care, x-rays were negative. Patient states she has been having pain since that time as well as spasming. Spasms are so bad, caused her to fall and drop her grandchild. Intermittent, severe, does not radiate, proximal shoulder/in her armpit. Not made worse with leaning her head away, but made worse by using right upper extremity at shoulder, elbow, wrist, or hand. Has not taken anything other than narcotic medication for pain. Please note that above description of symptoms, in this electronic medical record under categorization of recalled from ER triage doctor by RN are reflective of an initial nursing assessment, however, is not reflective of my full history and physical exam that was personally taken and clarified. Consequentially, this preceding description of symptoms, which may include the patient's categorized chief complaint in the EMR, do not reflect my personal clinical impression, and the ultimate description of history of present illness and patient stated complaints should be deferred to this section of the note. Unless stated otherwise or congruent with this section of the note, additional signs, symptoms, or incongruence should be interpreted as inaccurate with my clinical impression. Related Data Home Medications Medication Instructions Recorded Confirmed polyethylene glycol 3350 17 gram 17 g PO DAILY BOWELS 04/21/21 12/24/23 oral powder packet Previous Rx's Medication Instructions Recorded cholecalciferol (vitamin D3) 25 25 mcg PO DAILY Supplement #90 caps 06/19/22 mcg (1,000 unit) capsule calcium polycarbophil 625 mg 1,250 mg (2 x 625 mg) PO BID #120 03/27/23 tablet (FiberCon) tabs atorvastatin 10 mg tablet 10 mg PO DAILY Cholesterol #90 tabs 05/23/23 valacyclovir 1 gram tablet 1,000 mg PO BID 10 days #20 tabs 08/15/23 (Valtrex) cholecalciferol (vitamin D3) 1,250 1,250 mcg PO WEEKLY vitamin d 08/20/23 mcg (50,000 unit) capsule deficeincy #12 caps omeprazole 40 mg capsule,delayed 40 mg PO DAILY 90 days #90 caps 08/20/23 release cyanocobalamin (vitamin B-12) See Rx Instructions .Route 12/25/23 1,000 mcg/mL injection solution .COMPLEX #1 mL promethazine 25 mg tablet 25 mg PO TID PRN nausea and 12/25/23 vomiting #30 tabs hydrocodone 7.5 mg-acetaminophen 1 tab PO Q6H PRN pain #120 tabs 01/02/24 325 mg tablet dexamethasone 6 mg tablet 6 mg PO DAILY #5 tabs 01/15/24 methocarbamol 750 mg tablet 1,500 mg (2 x 750 mg) PO TID 5 01/15/24 days #30 tabs Allergies Allergy/AdvReac Type Severity Reaction Status Date / Time No Known Allergies Allergy Verified 12/24/23 09:48 [facility] Disclaimer: The information contained in this section may have been updated after the patient was seen, as this information can be updated by other users. Medical History Anxiety B12 deficiency Barretts esophagus Chronic pain Chronic pancreatitis Lumbar disc disease with radiculopathy Lumbar disc disease with radiculopathy Vitamin B12 deficiency Social History Smoking Status: Never smoker second hand exposure: Yes alcohol intake: never substance use type: denies use current occupational status: other Travel in the last 8 weeks: None household members: spouse housing: house current occupation: COLLISION ESTIMATOR current occupational exposures/hazards: No caffeine: Yes ROS Obtained: Yes All systems reviewed & no additional complaints except as documented Physical Exam General General appearance: alert and in no apparent distress Head Head exam: atraumatic and normocephalic Eye Eye exam: Present normal appearance, PERRL and EOMI ENT ENT exam: Present mucous membranes moist Neck Neck exam: Present normal inspection, full ROM and trachea midline Respiratory Respiratory exam: Present normal lung sounds bilaterally; Absent respiratory distress, wheezes, stridor, accessory muscle use or prolonged expiratory phase Cardiovascular Cardiovascular exam: Present regular rate and normal rhythm Abdominal Exam Abdominal exam: Present soft; Absent distention, tenderness, guarding, rebound or rigidity Extremities Exam Extremities exam: Present tenderness (Intermittent spasming with pain and right upper extremity shoulder down into fingers with any range of motion. No outward signs of injury. Neurovascularly intact.); Absent edema Neurological Exam Neurological exam: Present alert, oriented X3, CN II-XII intact and normal gait; Absent motor sensory deficit Skin Skin exam: Present warm and dry; Absent diaphoresis or erythema Medical Decision Making Medical Records Medical records reviewed: Yes I reviewed the patient's medical records. Bassem Inquiry Pt receiving controlled substance: No Basesm was queried for this patient: No Vital Signs: 01/15/24 12:37 01/15/24 13:00 01/15/24 13:30 Temperature 97.9 F 98.3 F Temperature Source Oral Pulse Rate 94 H Pulse Rate [Radial] 110 H Respiratory Rate 20 Blood Pressure 141/98 H 121/85 Blood Pressure [Left Arm] 120/89 Blood Pressure Mean 101 92 Blood Pressure Mean [Left Arm] 99 Blood Pressure Source [Left Arm] Automatic Cuff Blood Pressure Position [Left Arm] Sitting 02 Sat by Pulse Oximetry 99 98 Oxygen Delivery Method Room Air Room Air Orders (Tests/Meds): ED MEDICATIONS Discontinued Medications Generic Name Dose Route Start Last Admin Trade Name Juan Fq PRN Reason Stop Dose Admin Dexamethasone 10 mg 01/15/24 12:44 01/15/24 12:55 Dexamethasone 4mg Tablet PO 01/15/24 12:45 10 mg ONCE ONE Administration Ketorolac Tromethamine 15 mg 01/15/24 12:44 01/15/24 12:55 Ketorolac 30mg/Ml Vial IM 01/15/24 12:45 15 mg ONCE ONE Administration Methocarbamol 1,500 mg 01/15/24 12:44 01/15/24 12:56 Methocarbamol 500mg Tablet PO 01/15/24 12:45 1,500 mg ONCE ONE Administration Medical Decision Narrative: 53-year-old female history of chronic neck and back pain, chronic pancreatitis on [place] presenting with right upper extremity pain. Patient states that a few days prior to this visit, she fell to the [facility] in the bathroom, caught her self with her right shoulder. Came to the urgent care, x-rays were negative. Patient states she has been having pain since that time as well as spasming. Spasms are so bad, caused her to fall and drop her grandchild. Intermittent, severe, does not radiate, proximal shoulder/in her armpit. Not made worse with leaning her head away, but made worse by using right upper extremity at shoulder, elbow, wrist, or hand. Has not taken anything other than narcotic medication for pain. History obtained with patient. On arrival, patient complaining of severe pain in her right shoulder. Made worse with motion of the upper extremity. Differential includes sprain, strain, neuropraxia, brachial plexus injury, among others. Patient was given Decadron, Robaxin, Toradol for symptomatic management. On reevaluation, patient feeling much better. Because patient at baseline without signs or symptoms of clinical decompensation, deemed appropriate for discharge. Results were relayed to patient who voiced understanding and were agreeable to outpatient management and follow up. I discussed my clinical impression with patient and answered all questions. At this time, the evidence for any other entities in the differential is insufficient to warrant any further testing or ED observation. This was explained as well. Advisory was given that persistent or worsening symptoms require further evaluation. I confirmed the understanding of this discussion. Critical Care Critical Care Time Critical Care Time: No
[2024-01-15 13:00] VITALS: BP 141/98; TEMP 36.8
[2024-01-15 13:30] VITALS: BP 121/85; PULSE 94; O2SAT 98
--- NOTE | 2024-01-15 13:33 | PC.NURSE ---
ROUNDED ON PT, REPORTS FEELING BETTER. NO NEEDS AT THIS TIME. CALL LIGHT WITHIN REACH
[2024-01-15 13:51] VITALS: BP 121/85; PULSE 99; RESP 16; TEMP 36.6; O2SAT 97
== END 2024-01-15 13:52 | disposition home or self-care (01) ==
PROVIDERS: Emergency Provider Emergency Medicine
DX: M54.12 Radiculopathy, cervical region (principal); S44.91XA Injury of unspecified nerve at shoulder and upper arm level, right arm, initial encounter; M62.838 Other muscle spasm; W18.39XA Other fall on same level, initial encounter
CPT/HCPCS: 96372; 99283

== ENCOUNTER 2024-02-05 14:14 | Outpatient (CLI) | payer OTHER, SELFPAY ==
--- NOTE | 2024-02-05 14:14 | MR_ITS ---
FINAL REPORT TECHNIQUE: Multiplanar MR without contrast was obtained of the right shoulder. CLINICAL HISTORY: Rt Shoulder Pain. fell January 09 and shoulder pain since. limited rom. weakness in arm COMPARISON: None FINDINGS: Marrow signal: Extensive marrow edema of the proximal humerus involving the head, neck, and proximal shaft. Nondisplaced comminuted longitudinal fracture of the lateral humeral neck and greater tuberosity. Glenohumeral joint: Physiologic effusion. Mild degenerative changes. AC joint: Mild arthropathy. Small fluid in the subacromial bursa compatible with bursitis. Rotator cuff: Tendinosis without tear of the infraspinatus, supraspinatus, or subscapularis tendons. Labrum: Normal morphology without tear Biceps tendon: Intra-articular long head biceps tendon intact. IMPRESSION: Nondisplaced subacute fracture greater tuberosity, humerus, and lateral neck with marrow edema. Fracture is likely radiographically occult. Reviewed, Interpreted and Dictated by Christina Tolentino MD Transcribed by Krissy Guido Authenticated and [facility]
== END 2024-02-05 23:59 | disposition home or self-care (01) ==
LOC: RAD 14:14
PROVIDERS: PCP Physician Assistant; Visit Provider Orthopaedic Surgery
DX: M25.511 Pain in right shoulder (principal); S46.011A Strain of muscle(s) and tendon(s) of the rotator cuff of right shoulder, initial encounter
CPT/HCPCS: 73221

== ENCOUNTER 2024-03-18 13:12 | Outpatient (CLI) | payer OTHER, SELFPAY ==
--- NOTE | 2024-03-18 13:15 | XR_ITS ---
FINAL REPORT CLINICAL HISTORY: Rt Humerus fx fall january 2024 COMPARISON: None FINDINGS: RIGHT SHOULDER Two views demonstrate a subacute fracture of the proximal humeral diaphysis with callus formation. No other fracture identified. There is mild degenerative change. The visualized bony structures are well aligned. No soft tissue abnormality is seen. IMPRESSION: Subacute fracture proximal humeral diaphysis with callus formation. Reviewed, Interpreted and Dictated by Trung العراقي III, MD Transcribed by Krissy Guido Authenticated and [facility]
== END 2024-03-18 23:59 | disposition home or self-care (01) ==
LOC: RAD 13:13
PROVIDERS: PCP Physician Assistant; Visit Provider Physician Assistant
DX: M25.511 Pain in right shoulder (principal); S42.294D Other nondisplaced fracture of upper end of right humerus, subsequent encounter for fracture with routine healing
CPT/HCPCS: 73030

== ENCOUNTER 2024-03-26 15:41 | Outpatient (CLI) | payer OTHER, SELFPAY ==
--- NOTE | 2024-03-26 15:41 | XR_ITS ---
FINAL REPORT TECHNIQUE: Bone densitometry calculations of the lumbar spine and left hip were obtained. CLINICAL HISTORY: right humerus fracture, menopause, gastric bypass COMPARISON: None FINDINGS: Using L1-4, the bone mineral density of the spine is 0.885 g/cm2, corresponding to T-score of -1.5. Using the left hip, the bone mineral density of the femoral neck is 0.658 g/cm2, corresponding to a T-score of -2.3. NOTE: T-score: Standard deviation compared with peak bone mass of young adult mean. *Following the recommendations of the International Society of Bone densitometry, classification of hip BMD is based on the lower of two T-scores; total hip or femoral neck. IMPRESSION: Diminished bone mineral density of the lumbar spine and left hip consistent with osteopenia. Reviewed, Interpreted and Dictated by Christina Tolentino MD Transcribed by Iris Saavedra Authenticated and [facility]
== END 2024-03-26 23:59 | disposition home or self-care (01) ==
LOC: RAD 15:41
PROVIDERS: PCP Physician Assistant; Visit Provider Physician Assistant
DX: M85.89 Other specified disorders of bone density and structure, multiple sites (principal); S42.294D Other nondisplaced fracture of upper end of right humerus, subsequent encounter for fracture with routine healing
CPT/HCPCS: 77080

== ENCOUNTER 2024-05-22 11:00 | Outpatient (RCR) | payer OTHER, SELFPAY | END 2024-05-22 11:05 | disposition home or self-care (01) | LOC: OT 11:00 | PROVIDERS: Visit Provider Orthopaedic Surgery | DX: M25.511 Pain in right shoulder (principal); S42.294D Other nondisplaced fracture of upper end of right humerus, subsequent encounter for fracture with routine healing; S46.011D Strain of muscle(s) and tendon(s) of the rotator cuff of right shoulder, subsequent encounter | CPT/HCPCS: 97010; 97014; 97035; 97110; 97140; 97164; 97165; 97530; G0283 ==

== ENCOUNTER 2024-07-09 12:29 | Outpatient (CLI) | payer OTHER, SELFPAY ==
[2024-07-12 00:08] LABS: Pancreatic Elastase, Fecal 63 (>200)
== END 2024-07-09 23:59 | disposition home or self-care (01) ==
LOC: LAB 12:29
PROVIDERS: PCP Physician Assistant; Visit Provider Nurse Practitioner Family
DX: R14.0 Abdominal distension (gaseous) (principal); R11.10 Vomiting, unspecified; K86.1 Other chronic pancreatitis
CPT/HCPCS: 82656

== ENCOUNTER 2024-07-25 08:20 | Outpatient (CLI) | payer OTHER, SELFPAY ==
--- NOTE | 2024-07-25 08:25 | MM_ITS ---
PROCEDURE INFORMATION: Exam: MG Bilateral Screening 3D Mammography Exam date and time: 07/25/2024 8:16 AM Age: 54 years old Clinical indication: Screening examination. Her paternal aunt and maternal cousin had breast cancer. TECHNIQUE: Imaging protocol: Bilateral Screening tomosynthesis and 2D mammography including computer-aided detection (CAD) when performed. COMPARISON: 1. MG MM DIG SCREENING MAMM BI W/CAD 08/23/2020 4:50 PM 2. MG DMSB DIG MAMM-SCREEN JV 05/22/2016 10:51 AM 3. MG DIGMAMMS MAMMOGRAM SCREEN-SKIP HOIST ENGINEER N/C 06/19/2013 11:04 AM 4. MG DIGMAMMS MAMMOGRAM SCREEN-SKIP HOIST ENGINEER N/C 05/10/2012 11:04 AM FINDINGS: MAMMOGRAPHY: Breast composition: There are scattered areas of fibroglandular density. Mass: None. Architectural distortion: None. Calcifications: No suspicious calcifications. Asymmetric density: None. Skin thickening: None. Axillary adenopathy: None. IMPRESSION: No mammographic evidence of malignancy. Annual screening is recommended unless otherwise clinically indicated. ASSESSMENT: BI-RADS Category 1: Negative.
== END 2024-07-25 23:59 | disposition home or self-care (01) ==
LOC: RAD 08:21
PROVIDERS: PCP Physician Assistant; Visit Provider Physician Assistant
DX: Z12.31 Encounter for screening mammogram for malignant neoplasm of breast (principal)
CPT/HCPCS: 77063; 77067

== ENCOUNTER 2024-08-27 06:30 | Day surgery (SDC) | payer OTHER, SELFPAY ==
--- NOTE | 2024-08-26 08:20 | SUR.PREOP ---
LM on 08/26 @ [id number] w/ call back #.
[2024-08-26 09:01] VITALS: BMI 26.4
[2024-08-27] MEDS: LACTATED RINGERS 1000ML 1,000 ML 25 ML IV (06:56)
[2024-08-27 06:58] VITALS: BP 128/81; PULSE 89; RESP 18; TEMP 36.1; O2SAT 99
--- NOTE | 2024-08-27 07:08 | P.PNANES_ITS ---
[facility] Disclaimer: The information contained in this section may have been updated after the patient was seen, as this information can be updated by other users. Medical History Barretts esophagus Chronic pain B12 deficiency Anxiety Vitamin B12 deficiency Lumbar disc disease with radiculopathy Chronic pancreatitis Surgical History Hx laparoscopic cholecystectomy H/O total hysterectomy History of pancreatic surgery Gastric bypass status for obesity Family History Mother Cancer Diabetes Heart disease Father Diabetes Heart disease Father No problems noted. Social History Smoking Status: Never smoker second hand exposure: Yes alcohol intake: never substance use type: denies use current occupational status: other Travel in the last 8 weeks: None household members: spouse housing: house current occupation: CAREER DEVELOPMENT COUNSELOR current occupational exposures/hazards: No caffeine: Yes [facility] Anesthesia Checklist Patient Identification Patient Identification: Arm Band Structural Data Admitted From: Home Planned Operative Procedure/s: EGD Consent for Planned Operative Procedure(s) Verified: Yes Verified Documents: Surgical Consent and History and Physical NPO Status Verified Time NPO: 00:00 Additional verifications Anesthesia Reactions: No Airway Assessment Mallampati Score:: Class II C-Spine Mobility Assessed: Yes TMJ Mobility Assessed: Yes Dentition: Good Dentition Neurological Assessment Level of Consciousness: Awake, Alert and Appropriate Anesthesia Plan Anesthesia Risk discussed: Yes Anesthesia Plan: Verified ASA Class: II Anesthesia Type: MAC
--- NOTE | 2024-08-27 07:25 | P.HP_ITS ---
History of Present Illness *Admission Date: 08/27/24 *Reason for visit:: Ward's esophagus with high-grade dysplasia *History of present illness: Mrs. Gonzales is a 54-year-old female who is here for surveillance upper endoscopy secondary to a history of Ward's esophagus with former high-grade dysplasia. The examination is deemed medically necessary for EGD. The patient has been seen, interviewed and examined prior to the procedure by both myself and the anesthesia provider. [facility] Disclaimer: The information contained in this section may have been updated after the patient was seen, as this information can be updated by other users. Medical History (Updated 08/27/24 @ 07:29 by Julio Reese II, MD) Barretts esophagus Chronic pain B12 deficiency Anxiety Vitamin B12 deficiency Lumbar disc disease with radiculopathy Chronic pancreatitis Surgical History Hx laparoscopic cholecystectomy H/O total hysterectomy History of pancreatic surgery Gastric bypass status for obesity Family History Mother Cancer Diabetes Heart disease Father Diabetes Heart disease Father No problems noted. Other Chronic pancreatitis Social History Smoking Status: Never smoker second hand exposure: Yes alcohol intake: never substance use type: denies use current occupational status: other Travel in the last 8 weeks: None household members: spouse housing: house current occupation: [employer]ER current occupational exposures/hazards: No caffeine: Yes Other Medical History Have you received the Flu Vaccine for this season: No Have you received the Pneumonia Vaccine: No Review of Systems Review of Systems Review of systems (narrative): Negative *Cardiovascular Comments: Negative *Gastrointestinal Comments: Negative *Genitourinary Comments: Negative *Musculoskeletal Comments: Negative *Neurologic Comments: Negative Meds Home Medications and Allergies Home Medications ?Medication ?Instructions ?Recorded ?Confirmed ?Type polyethylene glycol 3350 17 gram 17 g PO DAILY BOWELS 04/21/21 08/26/24 History oral powder packet cholecalciferol (vitamin D3) 25 25 mcg PO DAILY Supplement #90 caps 06/19/22 08/26/24 Rx mcg (1,000 unit) capsule calcium polycarbophil 625 mg 1,250 mg (2 x 625 mg) PO BID #120 03/27/23 08/26/24 Rx tablet (FiberCon) tabs atorvastatin 10 mg tablet 10 mg PO DAILY Cholesterol #90 tabs 05/23/23 08/26/24 Rx valacyclovir 1 gram tablet 1,000 mg PO BID 10 days #20 tabs 08/15/23 08/26/24 Rx (Valtrex) cholecalciferol (vitamin D3) 1,250 1,250 mcg PO WEEKLY vitamin d 08/20/23 08/26/24 Rx mcg (50,000 unit) capsule deficeincy #12 caps alendronate 70 mg tablet (Fosamax) 70 mg PO WEEKLY #5 tabs 03/28/24 08/26/24 Rx famotidine 40 mg tablet (Pepcid) 40 mg PO DAILY #30 tabs 04/21/24 08/26/24 Rx pantoprazole 40 mg tablet,delayed 40 mg PO BID #60 tabs 04/21/24 08/26/24 Rx release (Protonix) cyanocobalamin (vitamin B-12) See Rx Instructions .Route 04/29/24 08/26/24 Rx 1,000 mcg/mL injection solution .COMPLEX #1 mL hydrocodone 10 mg-acetaminophen 1 tab PO Q6H PRN pain #120 tabs 06/16/24 08/26/24 Rx 325 mg tablet promethazine 25 mg tablet See Rx Instructions .Route 07/08/24 08/26/24 History .COMPLEX PRN Nausea And Vomiting avmifh-yopgmqud-[id number] 1 cap PO TID #90 caps 07/14/24 08/26/24 Rx 36,000-114,000-180,000 unit capsule,delay rel (Creon) New Prescriptions to Start Prescriptions: Allergies Allergy/AdvReac Type Severity Reaction Status Date / Time No Known Allergies Allergy Verified 08/27/24 06:57 Exam Data for Last 24 hours Vital signs and Labs for Last 24 Hours: Temp Pulse Resp BP Pulse Ox O2 Del Method 97.0 F L 89 18 128/81 99 Room Air 08/27/24 06:58 08/27/24 06:58 08/27/24 06:58 08/27/24 06:58 08/27/24 06:58 08/27/24 06:58 I & O for Last 24 hours: Intake & Output 08/24/24 08/25/24 08/26/24 08/27/24 23:59 23:59 23:59 23:59 Weight 149 lb *Routine HEENT Exam Head: Present normocephalic Eye: Present EOMI and PERRL ENT: Present mucous membranes moist *Routine Neck Exam Neck: Present supple *Routine Respiratory Exam Respiratory: Present CTA bilaterally *Routine Cardiovascular Exam Cardiovascular: Present RRR *Routine Abdominal Exam Abdominal: Present soft and normoactive bowel sounds; Absent tenderness *Routine Rectal Exam Rectal:: deferred *Routine Genitalia Exam Genitalia:: deferred *Routine Extremities Exam Extremities: Absent cyanosis, clubbing or edema *Routine Skin Exam Skin: Present warm; Absent rash *Routine Neurological Exam Neurological: Present alert and oriented X3 Assessment and Plan *Assessment and plan (1) Ward's esophagus with high grade dysplasia: Status: Acute Category: Medical Code(s): K22.711 - Ward's esophagus with high grade dysplasia (2) Hereditary pancreatitis: Status: Acute Category: Medical Code(s): K85.90 - Acute pancreatitis without necrosis or infection, unspecified (3) Chronic pancreatitis: Status: Chronic Qualifiers: Pancreatitis type: idiopathic Qualified Code(s): K86.1 - Other chronic pancreatitis Category: Medical Code(s): K86.1 - Other chronic pancreatitis (4) Painful swallowing: Status: Acute Category: Medical Code(s): R13.10 - Dysphagia, unspecified Plan A/P: 1. Former Ward's esophagus with high-grade dysplasia/painful swallowing is the preprocedural diagnosis. The patient will be anesthetized/sedated using MAC sedation. The patient has been seen and examined. Cardiac and lung assessment prior to the examination is stable. Proceed with planned EGD
--- NOTE | 2024-08-27 07:29 | HMH.PROCNOTE ---
[facility] Procedure Note Date: 08/27/24 Time: 07:48 Procedure Note:: Upper Endoscopy Procedure Report: Esophagogastroduodenoscopy with cold biopsies and TTS balloon dilation Endoscopost: Julio Reese II, MD Referring Physician: Maribeth Dejesus PA-C Date of Procedure: August 27, 2024 Equipment: Olympus GIF 190 standard upper endoscope Sedation: MAC sedation Indications: Mrs. Gonzales is a 54-year-old female who is here for EGD and surveillance for Ward's. She has a former history of Ward's esophagus with high-grade dysplasia. She has had radiofrequency ablation in 2013. At 1 point she was diagnosed with early esophageal cancer but had multiple RFA's done and was not a candidate for surgery. She had gastric bypass 24 years ago. Her last EGD with mi in February 2021 showed intestinal metaplasia at the GE junction but no dysplasia. The patient also has a history of hereditary pancreatitis with chronic pancreatitis. Genetic testing has been done on her daughter and granddaughter but we do not have these reports (CFTR or SPINK). She did have partial pancreatectomy at the [facility] and has done well and is no longer symptomatic. She has had 2 prior pancreatic surgeries and her first surgery was in 2005. The patient does report vomiting without nausea. She does have some painful swallowing. The pain is a sharp knifelike pain when she swallows in the lower retrosternal region. She reports no dysphagia. She had gastric ulcers in the remote past. The patient also has some opioid-induced constipation and is on hydrocodone 1 or 2 a day. She is not consistent with MiraLAX plus Metamucil. She does have some bloating. Her last colonoscopy in April 2021 was normal without polyps. Procedure: Prior to the procedure, a history and physical exam was performed, and patient's medications and allergies were reviewed. The risks, benefits and alternatives of the sedation and procedure were discussed with the patient. All questions were answered and informed consent was obtained. The patient was brought to the procedure room. Patient identification and proposed procedure were verified by the physician and the nurse. The patient was placed in a left lateral decubitus position and the scope was passed under direct vision. Throughout the procedure, the patient's blood pressure, pulse, and oxygen saturations were monitored continuously. The upper GI endoscopy was accomplished without difficulty. The patient tolerated the procedure well. Findings: The scope was passed directly into the upper esophagus and advanced to the afferent and efferent limbs of jejunum. There was normal Valeria anatomy after bypass. The afferent stump was normal. The scope was advanced distally into the efferent limb which was normal in appearance with normal conniventes. The scope was withdrawn to the stoma and there was some stomal stenosis which was mild. Because of her symptoms of vomiting and fullness, I did feel that this should be dilated and I dilated this up to 15 mm with a TTS hydrostatic balloon. There was an average or slightly larger than average gastric pouch. There was no pouchitis/gastritis. There was no fistula. The scope was then withdrawn into the esophagus. There was no evidence of Ward's esophagus. There was a serrated Z-line. Biopsies were taken at the GE junction. There was no evidence of reflux esophagitis or strictures. There was moderate esophageal dysmotility. The remainder of the esophageal mucosa was normal. Impression: 1. Valeria-en-Y gastric bypass anatomy 2. 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 No evidence of Ward's with nonerosive GERD and moderate esophageal dysmotility (biopsies taken at the GE junction with NBI (narrowband imaging) Plan: I will follow-up the biopsies. I do feel that she is having some esophageal spasm/esophageal dyskinesia. We will discuss treatment options. I will try to obtain reports of her family's genetic testing for hereditary pancreatitis.
[2024-08-27 07:34] VITALS: O2SAT 99
[2024-08-27 07:53] VITALS: BP 89/59; PULSE 82; RESP 18; TEMP 36.2; O2SAT 96
[2024-08-27 08:03] VITALS: BP 95/67; PULSE 74; RESP 18; O2SAT 100
[2024-08-27 08:13] VITALS: BP 102/64; PULSE 76; RESP 18; O2SAT 100
[2024-08-27 08:23] VITALS: BP 100/64; PULSE 79; RESP 18; O2SAT 98
== END 2024-08-27 08:28 | disposition home or self-care (01) ==
PROVIDERS: PCP Physician Assistant; Visit Provider Internal Medicine Gastroenterology
PROC: 0DJ08ZZ Inspection of Upper Intestinal Tract, Via Natural or Artificial Opening Endoscopic (ICD-10-PCS; CPT 43235; principal; 2024-08-27 08:00)
DX: K22.711 Barrett's esophagus with high grade dysplasia (principal); K85.90 Acute pancreatitis without necrosis or infection, unspecified; K86.1 Other chronic pancreatitis; R13.10 Dysphagia, unspecified; K59.03 Drug induced constipation; K22.4 Dyskinesia of esophagus; R14.0 Abdominal distension (gaseous); K21.9 Gastro-esophageal reflux disease without esophagitis; K31.89 Other diseases of stomach and duodenum
CPT/HCPCS: 43239; 43249; C1726; J2405; J7120

== ENCOUNTER 2024-12-08 14:34 | Outpatient (CLI) | payer OTHER, SELFPAY ==
--- NOTE | 2024-12-08 | CA_ITS ---
APPROVED REPORT EXAM: Comprehensive 2D, Doppler, and color-flow Echocardiogram Combatant Swimmer: Alondra Mott RT(R) Ht: 5 ft 2 in Wt: 152lbs BSA: 1.70 BP: 142/84 mmHg Indications: edema, family history of HD, edema bilateral legs from knees down, and bilateral hands, lightheadedness 2D Dimensions LVEF (Wang's) 58.70 % F: 54 - 74 LV Volume 64.90 mL F: 46 - 106 LV Volume Index 38.2 mL/m2 F: 29 - 61 LA Volume 20.70 mL LA Volume Index 12.18 mL/m2 (M/F) 16-34 EF AP4 59.00 % EF AP2 55.0 % EF BP 58.7 % GL Strain -22.1 % M-Mode Dimensions RVDd 2.62 cm (0.9-2.6) LA Diam 2.34 cm (1.9-4.0) LVDd 4.02 cm (3.5-5.7) LVDs 3.02 cm (3.5-5.7) IVSd 0.80 cm (0.6-1.1) PWd 0.80 cm (0.6-1.1) EF (Teich) 49.70% FS 24.90% EDV (Teich) 70.80 mL ESV (Teich) 35.60 mL LV Diastology E Decel Time 160 (160-240 msec) E/A Ratio 1.2 Mitral Valve MV E Max Finesse. 85.0 (40-130 cm/s) MV A Velocity 69.0 (40-130 cm/s) E/A Ratio 1.23 MV PHT 47.0 ms Left Ventricle The left ventricle is normal size. The left ventricular systolic function is normal. The left ventricular ejection fraction is within the normal range. There is increased LV wall thickness. There is normal LV segmental wall motion. The left ventricular diastolic function is normal. LVEF is 55%. Right Ventricle The right ventricle is mildly dilated. The right ventricular systolic function is normal. Atria The left atrium is mildly dilated. The right atrium is mildly dilated. There is no Doppler evidence of interatrial shunt. Aortic Valve Aortic valve is mildly thickened. There is no aortic valvular stenosis. No aortic regurgitation is present. Mitral Valve The mitral valve is normal in structure. No evidence of mitral valve stenosis. There is no mitral valve regurgitation noted. Tricuspid Valve Tricuspid valve is grossly normal in structure and function. Trace tricuspid regurgitation. There is insufficient TR jet to estimate RVSP. Pulmonic Valve The pulmonary valve is normal in structure. Trace pulmonic regurgitation. Great Vessels The aortic root is normal in size. IVC is normal in size and collapses >50% with inspiration. Pericardium There is no pericardial effusion. Other Information Study Quality: Fair Conclusion Normal biventricular systolic function. Mild RV dilation. Mild biatrial dilation. No significant valvular stenosis or regurgitation. Electronically signed by : Natalia Rogers MD 12/16/2024 10:28:01
== END 2024-12-08 23:59 | disposition home or self-care (01) ==
LOC: RT 14:35
PROVIDERS: PCP Physician Assistant; Visit Provider Physician Assistant
DX: I51.7 Cardiomegaly (principal); R60.0 Localized edema
CPT/HCPCS: 93306

== ENCOUNTER 2025-01-27 14:36 | Outpatient (RCR) | payer OTHER, SELFPAY | END 2025-01-27 23:59 | disposition home or self-care (01) | LOC: PT 14:36 | PROVIDERS: PCP Physician Assistant; Visit Provider Physician Assistant | DX: R60.0 Localized edema (principal) | CPT/HCPCS: 97163 ==

== ENCOUNTER 2025-02-09 12:24 | Emergency (ER) | payer OTHER, SELFPAY ==
[2025-02-09 12:28] VITALS: BP 118/97; PULSE 117; RESP 20; TEMP 36.6; O2SAT 100; BMI 29.6
--- NOTE | 2025-02-09 12:43 | XR_ITS ---
FINAL REPORT CLINICAL HISTORY: Fall, humerus pain FINDINGS: Three views of the left shoulder were obtained. No prior exam available for comparison. There is no fracture or dislocation. Mild degenerative joint disease is noted. Soft tissues are unremarkable. IMPRESSION: No acute osseous abnormality of the left shoulder. Reviewed, Interpreted and Dictated by Tete Hays MD Transcribed by Krissy Guido Authenticated and [facility]
--- NOTE | 2025-02-09 12:43 | XR_ITS ---
FINAL REPORT CLINICAL HISTORY: Fall, patella pain FINDINGS: AP, lateral and oblique views of the right knee were obtained. There is no prior exam for comparison. There is no acute osseous abnormality of the right knee. The joint space is preserved. The soft tissues are normal. There is no joint effusion. IMPRESSION: No acute osseous abnormality of the right knee. Reviewed, Interpreted and Dictated by Tete Hays MD Transcribed by Krissy Guido Authenticated and [facility]
--- NOTE | 2025-02-09 12:43 | XR_ITS ---
FINAL REPORT CLINICAL HISTORY: Fall, patella pain COMPARISON: 07/10/2020 FINDINGS: AP, lateral and oblique views of the left knee were obtained. There is no acute osseous abnormality of the left knee. The joint space is preserved. The soft tissues are normal. There is no joint effusion. IMPRESSION: No acute osseous abnormality of the left knee. Reviewed, Interpreted and Dictated by Tete Hays MD Transcribed by Krissy Guido Authenticated and [facility]
--- NOTE | 2025-02-09 12:43 | XR_ITS ---
FINAL REPORT CLINICAL HISTORY: Fall, humerus pain FINDINGS: Three views of the left elbow were obtained. There is no prior exam for comparison. There is a fracture of the radial head, likely depressed. There is no dislocation. The joint spaces are intact. A joint effusion is noted. There is mild soft tissue edema. IMPRESSION: Radial head fracture, joint effusion, and mild soft tissue edema. Reviewed, Interpreted and Dictated by Tete Hays MD Transcribed by Krissy Guido Authenticated and [facility]
--- NOTE | 2025-02-09 12:43 | XR_ITS ---
FINAL REPORT CLINICAL HISTORY: Fall, humerus pain COMPARISON: None FINDINGS: Two views of the left humerus were obtained. There is no acute fracture or dislocation. The joint spaces are well preserved. There is no acute soft tissue abnormality. IMPRESSION: No acute abnormality identified. Reviewed, Interpreted and Dictated by eTte Hays MD Transcribed by Krissy Guido Authenticated and . [facility]
--- NOTE | 2025-02-09 12:45 | HMH.EDGENADL ---
Discharge Plan Disposition Patient Disposition: Home, Self-Care Condition: Good Prescriptions Prescriptions: No Action pantoprazole [Protonix] 40 mg tablet,delayed release (DR/EC) 40 mg PO BID Qty: 60 2RF famotidine [Pepcid] 40 mg tablet 40 mg PO DAILY Qty: 30 2RF hydrocodone-acetaminophen 10-325 mg tablet 1 tab PO Q6H PRN (Reason: pain) Qty: 120 0RF cholecalciferol (vitamin D3) 25 mcg (1,000 unit) capsule 25 mcg PO DAILY Qty: 90 3RF calcium polycarbophil [FiberCon] 625 mg tablet 1,250 mg PO BID Qty: 120 2RF valacyclovir [Valtrex] 1 gram tablet 1,000 mg PO BID 10 Days Qty: 20 1RF promethazine 25 mg tablet See Rx Instructions .ROUTE .COMPLEX PRN (Reason: Nausea And Vomiting) Dose Instruction: TAKE 1 TABLET 3 TIMES EACH DAY NEEDED FOR NAUSEA AND VOMITING Rx Instructions: TAKE 1 TABLET 3 TIMES EACH DAY NEEDED FOR NAUSEA AND VOMITING PRN; atorvastatin 10 mg tablet 10 mg PO DAILY Qty: 90 3RF cholecalciferol (vitamin D3) 1,250 mcg (50,000 unit) capsule 1,250 mcg PO WEEKLY Qty: 12 2RF alendronate [Fosamax] 70 mg tablet 70 mg PO WEEKLY Qty: 5 2RF cyanocobalamin (vitamin B-12) 1,000 mcg/mL solution See Rx Instructions .ROUTE .COMPLEX Qty: 1 3RF Dose Instruction: INJECT 1 ML INTO A MUSCLE FOR SUPPLEMENT Rx Instructions: INJECT 1 ML INTO A MUSCLE FOR SUPPLEMENT Creon 36,000-114,000- 180,000 unit capsule,delayed release(DR/EC) 1 cap PO TID Qty: 90 5RF Rx Instructions: Take 1 capsule 3 times a day with meals polyethylene glycol 3350 17 GM powder in packet 17 g PO DAILY Relistor 12 mg/0.6 mL solution 12 mg SQ DAILY Qty: 18 0RF Rx Instructions: 12 mg subcutaneously daily buspirone 10 mg tablet 10 mg PO BID Qty: 60 12RF Rx Instructions: Please take 1/2 tablet p.o. nightly x 5 to 7 days and then 1 tablet p.o. nightly x 5 to 7 days and then 1 tablet p.o. twice daily thereafter Referrals Follow up/Referrals: Murtaza Joel MD [Staff Physician] - See instructions (Call the Cardiology office for follow-up ) ProviderMatheus MD [Referring] - See instructions Activity Restrictions/Add. Instructions Additional Instructions/Restrictions: You were found to have a fracture of the radial head in your left elbow. Keep the splint clean and dry until you are reevaluated by orthopedic surgery. You can take Tylenol and ibuprofen every 6 hours for pain control. Wear the sling for additional pain relief. Call the Orthopedic Surgery office to schedule follow-up. Please return to ED if your symptoms worsen, change in location, change in severity, new symptoms develop or if you become concerned for your health. Clinical Impressions Clinical Impression: Fall (on)(from) sidewalk curb, initial encounter Closed fracture of head of left radius Qualifiers: Encounter type: initial encounter Fracture alignment: nondisplaced Qualified Code(s): S52.125A - Nondisplaced fracture of head of left radius, initial encounter for closed fracture Instructions Patient Instructions: DI for Elbow Fracture, DI for Acute Pain -- Adult, How To Perform RICE (Rest, Ice, Compress, Elevate), How to Take Care of Your Splint Print Language Print Language: Greenlandic Discharge ED Provider: Magy Perdomo General Adult HPI General Chief complaint: PAIN Stated complaint: Fall Time Seen by Provider: 02/09/25 12:28 Mode of Arrival: EMS Source of Information: Patient Description of Symptoms (Recalled from ER Triage Doc. by RN): pt presents to ED with c/o bilateral knee pain, and bilateral shoulder pain. pt reports that she was walking into the gas station to pay and tripped over the concrete. pt reports that she used her left arm to catch herself and also pain in right shoulder. History of Present Illness HPI narrative: Susan Gonzales is a 54 y/o female presenting after a fall. Patient reports walking into a gas station when she tripped over a small piece of concrete. Patient states she fell directly on both knees and possibly braced with her left hand. Patient denies hitting her head or losing consciousness. Patient reports significant pain in both knees as well as her left upper arm. Patient denies numbness, paresthesias or weakness. Related Data Home Medications ?Medication ?Instructions ?Recorded ?Confirmed polyethylene glycol 3350 17 gram 17 g PO DAILY BOWELS 04/21/21 08/26/24 oral powder packet promethazine 25 mg tablet See Rx Instructions .Route 07/08/24 08/26/24 .COMPLEX PRN Nausea And Vomiting Previous Rx's ?Medication ?Instructions ?Recorded cholecalciferol (vitamin D3) 25 25 mcg PO DAILY Supplement #90 caps 06/19/22 mcg (1,000 unit) capsule calcium polycarbophil 625 mg 1,250 mg (2 x 625 mg) PO BID #120 03/27/23 tablet (FiberCon) tabs atorvastatin 10 mg tablet 10 mg PO DAILY Cholesterol #90 tabs 05/23/23 valacyclovir 1 gram tablet 1,000 mg PO BID 10 days #20 tabs 08/15/23 (Valtrex) cholecalciferol (vitamin D3) 1,250 1,250 mcg PO WEEKLY vitamin d 08/20/23 mcg (50,000 unit) capsule deficeincy #12 caps alendronate 70 mg tablet (Fosamax) 70 mg PO WEEKLY #5 tabs 03/28/24 famotidine 40 mg tablet (Pepcid) 40 mg PO DAILY #30 tabs 04/21/24 pantoprazole 40 mg tablet,delayed 40 mg PO BID #60 tabs 04/21/24 release (Protonix) cyanocobalamin (vitamin B-12) See Rx Instructions .Route 04/29/24 1,000 mcg/mL injection solution .COMPLEX #1 mL hydrocodone 10 mg-acetaminophen 1 tab PO Q6H PRN pain #120 tabs 06/16/24 325 mg tablet [id number] 1 cap PO TID #90 caps 07/14/24 36,000-114,000-180,000 unit capsule,delay rel (Creon) buspirone 10 mg tablet 10 mg PO BID #60 tabs 08/27/24 methylnaltrexone 12 mg/0.6 mL 12 mg (0.6 mL) SQ DAILY #18 mL 08/27/24 subcutaneous solution (Relistor) Allergies Allergy/AdvReac Type Severity Reaction Status Date / Time No Known Allergies Allergy Verified 08/27/24 06:57 [facility] Disclaimer: The information contained in this section may have been updated after the patient was seen, as this information can be updated by other users. Medical History (Updated 02/09/25 @ 14:20 by Magy Perdomo MD) Barretts esophagus Chronic pain B12 deficiency Anxiety Vitamin B12 deficiency Lumbar disc disease with radiculopathy Chronic pancreatitis Surgical History Hx laparoscopic cholecystectomy H/O total hysterectomy History of pancreatic surgery Gastric bypass status for obesity Family History Mother Cancer Diabetes Heart disease Father Diabetes Heart disease Father No problems noted. Other Chronic pancreatitis Social History Smoking Status: Never smoker second hand exposure: Yes alcohol intake: never substance use type: denies use current occupational status: other Travel in the last 8 weeks?: None household members: spouse housing: house current occupation: DRIVER'S EDUCATION INSTRUCTOR current occupational exposures/hazards: No caffeine: Yes Have you lived/traveled outside US in past 30 days?: No Contact w/someone who lives/traveled outside US past 30 days?: No Exposure to someone with infectious disease in past 14 days?: No Do you have a fever (greater than 100.4 F or 38 C)?: No Have you tested positive for COVID-19?: No Exposed to someone with COVID-19 in past 14 days?: No Do you have a sore throat?: No Do you have a cough?: No Do you have any weakness?: No Do you have any diarrhea?: No Are you experiencing any unusual bleeding?: No Do you have any muscle aches/pain?: No Do you have any abdominal pain?: No Are you experiencing loss of taste or smell?: No Other Medical History Have you received the Flu Vaccine for this season: No Have you received the Pneumonia Vaccine: No ROS Obtained: Yes All systems reviewed & no additional complaints except as documented Physical Exam General General appearance: alert and in no apparent distress Head Head exam: atraumatic Respiratory Respiratory exam: Present normal lung sounds bilaterally Cardiovascular Cardiovascular exam: Present regular rate and normal rhythm Abdominal Exam Abdominal exam: Present soft; Absent distention or tenderness Extremities Exam Extremities exam: Present tenderness and normal capillary refill; Absent edema Expanded Upper Extremity Exam Left: Shoulder exam: Absent tenderness Arm exam: Present tenderness Elbow exam: Absent full ROM Forearm/Wrist exam: Present full ROM; Absent tenderness Hand exam: Present full ROM; Absent tenderness Vascular exam: Normal radial pulse Expanded Lower Extremity Exam Left: Hip/Pelvis exam: Absent tenderness Upper leg exam: Absent tenderness Knee exam: Present tenderness and swelling; Absent full ROM or ecchymosis Lower leg exam: Absent tenderness or swelling Ankle exam: Absent tenderness or swelling Foot/toe exam: Absent tenderness or swelling Neurovascular/Tendon exam: Present normal capillary refill and normal fine/light touch; Absent pulse deficit Gait: observed and limited by pain Right: Hip/Pelvis exam: Absent tenderness Upper leg exam: Absent tenderness Knee exam: Present tenderness and swelling; Absent full ROM or ecchymosis Lower leg exam: Absent tenderness or swelling Ankle exam: Absent tenderness or swelling Foot/toe exam: Absent tenderness or swelling Neurovascular/Tendon exam: Present normal capillary refill and normal fine/light touch; Absent pulse deficit Gait: observed and limited by pain Back Exam Back exam: Present full ROM Neurological Exam Neurological exam: Present alert and oriented X3 Skin Skin exam: Present warm and dry Medical Decision Making Medical Records Medical records reviewed: Yes I reviewed the patient's medical records. Screening: Per USPSTF and CDC recommendations, given the prevalence of disease in our region, it is our hospital?s policy to screen for HIV and viral Hepatitis for all patients aged 18 and over and those with ongoing risk factors. Bassem Inquiry Pt receiving controlled substance: No Vital Signs: 02/09/25 12:28 Temperature 97.9 F Temperature Source Oral Pulse Rate [Left Radial] 117 H Respiratory Rate 20 Blood Pressure [Right Arm] 118/97 H Blood Pressure Mean [Right Arm] 104 Blood Pressure Source [Right Arm] Automatic Cuff Blood Pressure Position [Right Arm] Supine 02 Sat by Pulse Oximetry 100 Oxygen Delivery Method Room Air Orders (Tests/Meds): ED MEDICATIONS Discontinued Medications Generic Name Dose Route Start Last Admin Trade Name Josie PRN Reason Stop Dose Admin Acetaminophen 1,000 mg 02/09/25 12:43 02/09/25 13:00 Acetaminophen 500mg Tab PO 02/09/25 12:44 1,000 mg ONCE ONE Administration Ibuprofen 800 mg 02/09/25 12:45 02/09/25 12:59 Ibuprofen 800 Mg Tablet PO 02/09/25 12:46 800 mg ONCE ONE Administration Oxycodone HCl 5 mg 02/09/25 12:43 02/09/25 13:12 Oxycodone 5mg Immediate Release Tablet PO 02/09/25 12:44 Not Given ONCE ONE ORDERS Category Date Time Status Consult Nurse Liaison [CONS] Routine Cons 02/09/25 13:11 Active Elbow XR left 2 views [XR elbow LT 2V] Stat Exams 02/09/25 12:43 Completed Humerus XR left [XR humerus LT] Stat Exams 02/09/25 12:43 Completed Knee XR left 3 views [XR knee LT 3V] Stat Exams 02/09/25 12:43 Completed Knee XR right 3 views [XR knee RT 3V] Stat Exams 02/09/25 12:43 Completed Shoulder XR left minimum 2 views [XR shoulder LT min 2V Exams 02/09/25 12:43 Completed ] Stat HIV Combo Stat Lab 02/09/25 12:35 Ordered Hepatitis C Ab Qual. W/ RFX Stat Lab 02/09/25 12:35 Ordered Medical Decision Narrative: In summary, this is a 54-year-old female who presents for evaluation of a fall. Differential diagnosis includes but is not limited to fracture, dislocation, neurovascular injury, among others. Patient has focal areas of tenderness in her left humerus and bilateral patellas. Patient is not able to fully extend either lower extremity or her left elbow. Patient denies hitting her head or losing consciousness. Patient is not on blood thinners. Patient unable to ambulate secondary to pain. Patient has no neuro deficits. Will evaluate patient's injuries with XR left upper extremity and bilateral knees. Pain control with oxycodone, Tylenol, ibuprofen. Patient declined oxycodone due to prior drug use. Left elbow XR reviewed and demonstrates a radial head fracture with small joint effusion. No significant displacement of fracture. Remaining imaging personally reviewed by me and negative for fracture or dislocation. No significant joint effusions visualized of either knee. Based on fracture type, posterior long-arm splint placed on left upper extremity. Patient immobilized in flexion and placed in a sling. Patient will be referred to orthopedic surgery for follow-up. Patient updated with findings and given recommendations for follow-up as well as splint care at home. Patient stable for discharge at this time. Magy Perdomo MD Procedures Orthopedic Splinting/Casting Injury #1: Side: left Upper Extremity Injury Location: elbow Upper Extremity Immobilizer: sling/shoulder immobilizer, posterior splint, sling and applied by nurse/dr milian Post Cast/Splinting Neuro Status: intact Post Cast/Splinting Vasc Status: intact Critical Care Critical Care Time Critical Care Time: No
[2025-02-09] MEDS: IBUPROFEN 800 MG TABLET PO (12:59)
[2025-02-09] MEDS: ACETAMINOPHEN 500MG TAB 1000 MG PO (13:00)
[2025-02-09 14:55] VITALS: BP 120/80; PULSE 79; RESP 19; TEMP 36.7
--- NOTE | 2025-02-11 14:13 | PEERSUPPORT ---
Peer Support Note Patient Information Patient Information: DOS: 02/09/2025 Pt triggered emotionally by being offered narcotics. 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 Pt did refuse opiates, and processing these emotions and thoughts. Ps praised her for her strength of choices placing priority on her sobriety with applying her teaching from IOP to a real life situation, that is unplanned. Ps listens to validates feelings, then practices mindful breathing exercises with pt to regulate. Pt stated she is contacting her supports through her IOP program, and processing openly. Pt agrees to follow up calls with ps for positive recovery focused support.
== END 2025-02-09 14:56 | disposition home or self-care (01) ==
PROVIDERS: Emergency Provider Student in an Organized Health Care Education/Training Program; PCP Physician Assistant
DX: S52.122A Displaced fracture of head of left radius, initial encounter for closed fracture (principal); M79.602 Pain in left arm; M25.561 Pain in right knee; M25.562 Pain in left knee; W10.1XXA Fall (on)(from) sidewalk curb, initial encounter
CPT/HCPCS: 29105; 73030; 73060; 73070; 73562; 99284

== ENCOUNTER 2025-02-17 13:11 | Outpatient (CLI) | payer OTHER, SELFPAY ==
--- NOTE | 2025-02-17 13:13 | XR_ITS ---
FINAL REPORT CLINICAL HISTORY: Left elbow pain; radial head fracture and joint effusion COMPARISON: 02/09/2025 FINDINGS: LEFT ELBOW 3 views were obtained. There has been interval placement of overlying cast. The effusion appears to be smaller than on the previous exam. There may be a subtle radial neck fracture. The joint spaces are intact. There is no soft tissue abnormality. IMPRESSION: Subtle radial neck fracture with improved effusion. Reviewed, Interpreted and Dictated by Gilmer Anand MD Transcribed by Krissy Guido Authenticated and [facility]
== END 2025-02-17 23:59 | disposition home or self-care (01) ==
LOC: RAD 13:11
PROVIDERS: PCP Physician Assistant; Visit Provider Physician Assistant Surgical
DX: S52.132A Displaced fracture of neck of left radius, initial encounter for closed fracture (principal); M25.422 Effusion, left elbow; S52.122A Displaced fracture of head of left radius, initial encounter for closed fracture
CPT/HCPCS: 73080

== ENCOUNTER 2025-02-24 13:08 | Outpatient (CLI) | payer OTHER, SELFPAY ==
--- NOTE | 2025-02-24 13:11 | XR_ITS ---
FINAL REPORT CLINICAL HISTORY: Left Elbow fx f/u COMPARISON: 02/17/2025 FINDINGS: LEFT ELBOW Four views were obtained. There is a minimally displaced fracture of the radial head/neck. There is a minimally displaced fracture of the radial head/neck which is similar to prior. Fiberglass splint obscures bony detail. IMPRESSION: Redemonstrated is the radial head/neck fracture. Reviewed, Interpreted and Dictated by Christina Tolentino MD Transcribed by Елена Fernandez Authenticated and [facility]
== END 2025-02-24 23:59 | disposition home or self-care (01) ==
LOC: RAD 13:08
PROVIDERS: PCP Physician Assistant; Visit Provider Physician Assistant Surgical
DX: S52.122A Displaced fracture of head of left radius, initial encounter for closed fracture (principal); S52.132A Displaced fracture of neck of left radius, initial encounter for closed fracture
CPT/HCPCS: 73080

== ENCOUNTER 2025-03-10 13:09 | Outpatient (CLI) | payer OTHER, SELFPAY ==
--- NOTE | 2025-03-10 13:14 | XR_ITS ---
FINAL REPORT CLINICAL HISTORY: left elbow pain COMPARISON: 02/24/2025 FINDINGS: AP, oblique, and lateral views of the right elbow were obtained. Since the prior exam of 02/24/2025, the splint has been removed. There is a depressed radial head fracture, with the degree of disruption of the fragment worsen since the prior exam. Joint space is otherwise preserved. A joint effusion remains present. IMPRESSION: Depressed radial head fracture, with the degree of disruption of the fracture fragment more depressed when compared to the prior exam. A joint effusion remains present. Reviewed, Interpreted and Dictated by Tete Hays MD Transcribed by Iris Saavedra Authenticated and [facility]
== END 2025-03-10 23:59 | disposition home or self-care (01) ==
LOC: RAD 13:10
PROVIDERS: PCP Physician Assistant; Visit Provider Physician Assistant Surgical
DX: S52.122A Displaced fracture of head of left radius, initial encounter for closed fracture (principal); X58.XXXA Exposure to other specified factors, initial encounter; M25.422 Effusion, left elbow
CPT/HCPCS: 73080

== ENCOUNTER 2025-03-23 07:41 | Outpatient (CLI) | payer OTHER, SELFPAY ==
--- OUTSIDE RECORDS SUMMARY | 2025-03-23 07:43 | XMS_ITS | Clinical Summary ---
Author Organization Healthcare Address [address] [place] [address] Care Team Providers Care Manager Skilled Name Role Phone Maribeth Dejesus Primary Care Provider [phone] Family History Medical History Relation Name Comments Colon polyps Father Heart attack Maternal Grandfather Hypertension Maternal Grandfather Pancreatitis Maternal Grandfather Heart attack Maternal Grandmother Pancreatitis Mother Colon polyps Other Pancreatitis Sister Relation Name Status Comments Father Maternal Grandfather Maternal Grandmother Mother Other Sister Social History Tobacco Use Types Packs/Day Years Used Date Smoking Tobacco: Never Alcohol Use Standard Drinks/Week Comments Yes 0 (1 standard drink = 0.6 oz pur e alcohol) Comments Unknown Sex and Gender Information Value Date Recorded Sex Assigned at Not on file Legal Sex Female 8:43 PM EDT Gender Identity Not on file Sexual Orientation Not on file Last Filed Vital Signs Vital Sign Reading Time Taken Comments Blood Pressure - - Pulse - - Temperature - - Respiratory Rate - - Oxygen Saturation - - Inhaled Oxygen Concentration - - Weight 74.8 kg (164 lb 15.9 oz) 11/13/2016 8:12 AM EST Height 160 cm (5' 3 ) 11/13/2016 8:12 AM EST Body Mass Index 29.23 11/13/2016 8:12 AM EST Plan of Treatment Not on file Care Teams Manager Skilled Relationship Specialty Start Date End Date Maribeth Dejesus PA [address] [place] [address] PCP - General 02/18/21
--- NOTE | 2025-03-23 08:00 | CT_ITS ---
FINAL REPORT TECHNIQUE: Axial images through the left elbow were performed by computed tomography. Sagittal and coronal reconstruction images were performed. This study was performed with techniques to keep radiation doses as low as reasonably achievable (ALARA). Individualized dose reduction techniques using automated exposure control or adjustment of mA and/or kV according to the patient's size were employed. CLINICAL HISTORY: fracture. ANTERIOR ELBOW PAIN AFTER FALL 1 MONTH AGO COMPARISON: None FINDINGS: There is a intra-articular fracture through the lateral aspect of the radial head. This is mildly depressed measuring 2 mm. Findings are well seen on coronal reconstruction images 11-13 of series 601. No evidence of callus formation is noted. No significant degenerative changes identified. No soft tissue abnormality. IMPRESSION: Mildly depressed intra-articular fracture radial head. Reviewed, Interpreted and Dictated by Gilmer Anand MD Transcribed by Krissy Guido Authenticated and [facility]
== END 2025-03-23 23:59 | disposition home or self-care (01) ==
LOC: RAD 07:41
PROVIDERS: PCP Physician Assistant; Visit Provider Physician Assistant Surgical
DX: S52.122A Displaced fracture of head of left radius, initial encounter for closed fracture (principal)
CPT/HCPCS: 73200

== ENCOUNTER 2025-04-30 08:48 | Outpatient (CLI) | payer OTHER, SELFPAY ==
--- NOTE | 2025-04-30 08:50 | XR_ITS ---
FINAL REPORT CLINICAL HISTORY: evaluate and treat, fx February 08, 2025. COMPARISON: 03/10/2025 FINDINGS: LEFT ELBOW 3 views were obtained. There is a linear fracture in the central radial head. Depression measures up to 3 mm, similar to the prior study. Fracture line is slightly less distinct suggesting some fracture healing. Remaining osseous structures are unremarkable. The joint spaces are intact. There is no soft tissue abnormality. IMPRESSION: Stable displaced radial head fracture with mild partial healing. Reviewed, Interpreted and Dictated by Christina Tolentino MD Transcribed by Krissy Guido Authenticated and . [facility]
--- OUTSIDE RECORDS SUMMARY | 2025-04-30 08:58 | XMS_ITS | Clinical Summary ---
[facility] Address [address] [place] [address] Care Team Providers Care Maintenance Shop Welder Name Role Phone Reji Carvajal MD Primary Care Provider [phone] Social History Tobacco Use Types Packs/Day Years Used Date Smoking Tobacco: Never Assessed Abuse Screen Answer Date Recorded Unsafe at Home or Work/School Not on file Feels Threatened by Someone? Not on file 08/2023 Does Anyone Keep You from Co ntacting Others or Doint Things Outside the Home? Not on file 07/18/2023 Physical Sign of Abuse Present Not on file 1 Housing Stability Answer Date Recorded Current Living Arrangements Not on file 07/08 Potentially Unsafe Housing Conditions Not on krishan e 07/18/2023 Family and Community Support Answer Jeremias e Recorded Help with Day-to-Day Activities Not on file 07/18/2023 Lonely or Isolated Not on file 07/18/2023 Employment Answer Date Recorded Do you want help finding or keeping work or a tanmay b? Not on file 07/18/2023 Disabilities Answer Date Recorded Concentrating, Remembering, or Making Decisions Difficulty Not on file 07/18/2023 Doing Errands Independently Difficulty Not on fi le 07/18/2023 Education Answer Date Recorded Help with school or training? Not on file Preferred Language Not on file 07/18/2023 Comments Unknown Sex and Gender Information Value Date Recorded Sex Assigned at Not on file Legal Sex Female 9:25 AM EDT Gender Identity Not on file Sexual Orientation Not on file Plan of Treatment Health Maintenance Due Date Last Done Comments ANNUAL PHYSICAL 1970 Annual Gynecologic Pelvic and Breast Exam 1970 HEPATITIS C SCREENING 1970 TDAP/TD VACCINES (1 - Tdap) 1989 MAMMOGRAM 2010 COLOGUARD 2015 COLON CANCER SCREENING 5 YEAR SIGMOIDOSCOPY 2015 COLONOSCOPY 2015 [address]AL CANCER SCREENING 2015 CT COLONOGRAPHY 2015 FECAL OCCULT BLOOD TEST 2015 FIT Testing (1 year) 2015 Pneumococcal Vaccine 50+ (1 of 1 - PCV) 2020 ZOSTER VACCINE (1 of 2) 2020 COVID-19 Vaccine (1 - season) 2024 INFLUENZA VACCINE 07/08/2025 Care Teams Maintenance Shop Welder Relationship Specialty Start Date End Date Reji Carvajal MD [address] [facility] [address] ATTN: [place] [address] PCP - General 02/03/16
--- OUTSIDE RECORDS SUMMARY | 2025-04-30 08:58 | XMS_ITS | Clinical Summary ---
Author Organization Healthcare Address [address] [place] [address] Care Team Providers Care Pmo Business Analyst Name Role Phone Maribeth Dejesus Primary Care Provider [phone] Family History Medical History Relation Name Comments [...] of Treatment Not on file Care Teams Pmo Business Analyst Relationship Specialty Start Date End Date Maribeth Dejesus PA [address] [place] [address] PCP - General 02/18/21
== END 2025-04-30 23:59 | disposition home or self-care (01) ==
LOC: RAD 08:49
PROVIDERS: PCP Physician Assistant; Visit Provider Physician Assistant Surgical
DX: S52.122D Displaced fracture of head of left radius, subsequent encounter for closed fracture with routine healing (principal)
CPT/HCPCS: 73080

== ENCOUNTER 2025-06-11 08:45 | Outpatient (CLI) | payer OTHER, SELFPAY ==
--- NOTE | 2025-06-11 08:48 | XR_ITS ---
FINAL REPORT CLINICAL HISTORY: left elbow pain, broke Feb 09 2025, no surgery FINDINGS: Left elbow Three views were obtained. There is a mildly depressed intra-articular fracture of the radial head, may be subacute. No joint effusion is identified. IMPRESSION: Subacute fracture of the radial head. Reviewed, Interpreted and Dictated by Gilmer Anand MD Transcribed by Елена Fernandez Authenticated and [facility]
--- OUTSIDE RECORDS SUMMARY | 2025-06-11 08:51 | XMS_ITS | Clinical Summary ---
Author Organization Healthcare Address [address] [place] [address] Care Team Providers Care Bulb Grader Name Role Phone Maribeth Dejesus Primary Care Provider [phone] Family History Medical History Relation Name Comments [...] of Treatment Not on file Care Teams Bulb Grader Relationship Specialty Start Date End Date Maribeth Dejesus PA [address] [place] [address] PCP - General 02/18/21
--- OUTSIDE RECORDS SUMMARY | 2025-06-11 08:52 | XMS_ITS | Clinical Summary ---
[facility] [address] [place] [address] Care Team Providers Care Narrow Fabrics Weaver Name Role Phone Reji Carvajal MD Primary Care Provider Social History Tobacco Use Types Packs/Day Years [...] season) 2024 INFLUENZA VACCINE 07/08/2025 Care Teams N[employer] Fabrics Weaver Relationship Specialty Start Date End Date Reji Carvajal MD [address] [facility] [address] ATTN: [place] [address] PCP - General 02/03/16
== END 2025-06-11 23:59 | disposition home or self-care (01) ==
LOC: RAD 08:46
PROVIDERS: PCP Physician Assistant; Visit Provider Physician Assistant Surgical
DX: S52.122A Displaced fracture of head of left radius, initial encounter for closed fracture (principal)
CPT/HCPCS: 73080